=== PATIENT | female | born 1970 | race Hispanic/Latino ===

== ENCOUNTER → 2019-11-30 08:02 | Outpatient (CLI) | payer OTHER, SELFPAY ==
--- NOTE | ~2019-11-30 | US_ITS ---
US breast BI complete DATE: 11/30/2019 08:58 INDICATION: Bilateral breast masses on 11/12/2019 bilateral digital screening mammogram TECHNIQUE: Complete bilateral breast ultrasound examination COMPARISON: 11/12/2019 bilateral digital screening mammogram FINDINGS: There are numerous bilateral circumscribed sonolucent and hypoechoic lesions of variable si ze, including simple and complicated cysts and probable fibroadenomas. The largest of these on the ri ght is situated at 9:00 5 cm from the nipple, measuring up to 9 x 14 mm x 12 mm approximate dimension . The largest on the left is a simple cyst with through transmission posterior enhancement in the sub areolar area, measuring 6.4 x 12.3 x 11.5 mm. IMPRESSION: BI-RADS Category 3: Probably benign findings Recommendation: 6 month bilateral diagnostic mammogram and bilateral breast ultrasound follow-up Reviewed, dictated and finalized at [facility]. Reviewed, dictated and finalized at location A. CATCHER IMPRESSION: BI-RADS Category 3: Probably benign findings Recommendation: 6 month bilateral diagnostic mammogram and bilateral breast ult rasound follow-up
== END ==
PROVIDERS: PCP Family Medicine; Visit Provider Obstetrics & Gynecology
DX: R92.8 Other abnormal and inconclusive findings on diagnostic imaging of breast (principal)
CPT/HCPCS: 76641

== ENCOUNTER 2019-12-26 16:22 | Outpatient (RCR) | payer OTHER, SELFPAY ==
--- NOTE | 2019-12-26 17:30 | PTOPEVAL ---
Thank you for referring this patient to [facility]. Please review, sign, date and return this plan of care JACK. I agree with and certify that the following plan of care is medically necessary. Referring Physician Date Admitting Provider: Attending Provider: Shayna Domingo, Referring Provider: *PT Outpatient Evaluation Start: 12/26/19 16:30 Freq: Status: Active Protocol: Document 12/26/19 16:30 GALE (Rec: 12/26/19 17:03 GALE [id number]) Therapy Assessment Status Assessment Status Assessment Status Evaluation Evaluation Information Problem Diagnosis primary OA of bilateral knee joints Onset 11/25/19 Subjective Information Pt. reports that she developed Query Text:As Reported By Patient/ knee pain in the past. She Family reports that she does run btween 2-3 miles 3x/week. She reports that her pain is localized to the front of the knee. She reports that she does stretch occassionally. she reports that her pain does come and go. She reports she does no strength training. She states that her goal is reduce her pain. 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 Hand Dominance Right Activity of Daily Living Ability Independent Indoor/Home Mobility Independent Community Mobility Independent Stairs Ability Independent Functional Cognition (Planning, Shopping Independent , Taking Medications) Cooking Yes Cleaning Yes Laundry Yes Shopping Yes Driving Yes Pain Assessment Pain Scale Pain Scale Used Numeric (1 - 10) Self Report Pain Assessment Right Knee(s) Reported Pain Level 8 Pain Description Aching Pain Frequency Chronic,Continuous Current Pain Intensity 8 Lowest Pain Intensity 3 Greatest Pain Intensity 8 Pain Aggravating Factors Exercise/Activity Other Pain Aggravating Factors running Pain Score Pain Score 8: Self Report Lower Extremity Range of Motion General Lower Extremity Range of Motion Gross Lower Extremity Range of Motion Pt. demonstrates 0-135 degrees Comments bilateral
--- NOTE | 2019-12-30 15:34 | PCPTNOTE ---
12/30/19 Pt called and cancelled this date JF
--- NOTE | 2020-01-30 11:20 | PCPTNOTE ---
Pt. has failed to return to the clinic at this time. Refer to her last daily note on 12/26/19 for pt. discharge status. Prakash Richard, MPT
== END 2019-12-26 16:23 | disposition home or self-care (01) ==
LOC: CHSPT 16:22
PROVIDERS: Visit Provider Internal Medicine
DX: M17.0 Bilateral primary osteoarthritis of knee (principal); Q68.2 Congenital deformity of knee
CPT/HCPCS: 97014; 97110; 97161; G0283

== ENCOUNTER → 2021-12-24 14:54 | Outpatient (CLI) | payer OTHER, SELFPAY ==
--- NOTE | ~2021-12-24 | US_ITS ---
EXAMINATION: US transvaginal DATE: 12/24/2021 15:29 INDICATION: Menorrhagia Comparison:11/22/2018 TECHNIQUE: Multiple transabdominal and endovaginal sonographic images of the pelvis performed. FINDINGS: The uterus measures 7.9 x 3.6 x 4.5 cm. There is a uterine fibroid at the fundus measuring 8 mm. The endometrial complex measures 7 mm. The right ovary measures 1.7 x 1.3 x 1.8 cm and the left ovary measures 1.6 x 1 x 1.7 cm. There are small follicles in each ovary. Normal doppler signal in both ovaries. There is no free fluid in the pelvis. There are no abnormal masses seen on either side. IMPRESSION: 1. Small uterine fibroid at the fundus measuring 8 mm. Reviewed, dictated and finalized at location B. MAKER
== END ==
PROVIDERS: PCP Obstetrics & Gynecology; Visit Provider Obstetrics & Gynecology Gynecology
DX: N92.0 Excessive and frequent menstruation with regular cycle (principal); D25.9 Leiomyoma of uterus, unspecified
CPT/HCPCS: 76830

== ENCOUNTER 2022-09-22 08:31 | Day surgery (SDC) | payer OTHER, SELFPAY ==
[2022-05-20 09:54] VITALS: BMI 22.5
[2022-09-02 10:32] VITALS: BMI 22.8
[2022-09-22 09:02] VITALS: BP 118/79; PULSE 101; RESP 20; TEMP 36.8; O2SAT 100
--- NOTE | 2022-09-22 09:07 | WPDANESEPPF ---
Anes - Initial Pre Proc Eval Procedure: Operation Date: 09/22/22 09:45 Proposed Procedures p Screening Colonoscopy - Eliazar Collins MD Date/Time: 09/22/22 09:08 Surgeon: Eliazar Collins MD Pre Op Diagnosis: Neoplasm Screening Patient Data Age: 52 Gender: F Height: 1.73 m Weight: 65.6 kg Last Vital Signs Temp 36.8 C 09/22/22 09:02 Pulse 101 H 09/22/22 09:02 Resp 20 09/22/22 09:02 BP 118/79 09/22/22 09:02 Pulse Ox 100 09/22/22 09:02 O2 Del Method Room Air 09/22/22 09:02 Allergies Allergy/AdvReac Type Severity Reaction Status Date / Time No Known Allergies Allergy Verified 09/22/22 09:01 Home Medications Medication Instructions Recorded Confirmed Type evening primrose oil 500 mg capsule 500 mg PO DAILY 12/19/19 09/22/22 History folic acid 1 mg tablet 1 mg PO DAILY 12/19/19 09/22/22 History methotrexate sodium 2.5 mg tablet 2.5 mg PO WEEKLY 12/19/19 09/22/22 History progesterone micronized 200 mg 200 mg PO HS 12/19/19 09/22/22 History capsule testosterone 1.62 % (20.25 mg/1.25 1 packet transdermal DAILY 12/19/19 09/22/22 History gram) transdermal gel packet thyroid (pork) 81.25 mg tablet 81.25 mg PO DAILY 12/19/19 09/22/22 History Lactobacillus 1 cap PO DAILY 05/14/22 09/22/22 History acidophilus-Bifidobac.animalis 2.5 billion cell capsule (Daily Probiotic) cholecalciferol (vitamin D3) 125 125 mcg PO DAILY 05/14/22 09/22/22 History mcg (5,000 unit) capsule leflunomide 10 mg tablet 10 mg PO DAILY 05/14/22 09/22/22 History sulfasazine 2 tab-cap PO DAILY 05/14/22 09/22/22 History Patient hx anesthesia problems: none Family hx anesthesia problems: none Results Review: All pre-operative results and documents have been reviewed as part of the pre-operative evaluation. [facility] Past Medical History Medical History Breast cyst Connective tissue disorder Surgical History Surgical History History of myomectomy History of right knee surgery Previous section x 2 [place] teeth removed Family History Family History Sibling Family history of malignant neoplasm of breast in first degree relative Family history of thyroid disease Mother Family history of thyroid disease Family history of hypercholesterolemia Father Family history of hypercholesterolemia Carcinoma of colon Grandparent Family history of malignant neoplasm of ovary Other Family history of malignant neoplasm of breast Social History Social History Years smoked: 5 Smoking status: Former smoker Tobacco type: cigarettes Second hand tobacco smoke exposure: No Smoking end date: 11/02/96 Alcohol intake: current Drinks per week: 1 Substance use: never Substance use type: does not use Living arrangements: with family Spiritual care concerns: No Anes - Eval Final PreProcedure Day of Procedure 09/22/22 09:08 Patient weight: normal Heart: regular rate and rhythm Lungs: clear to auscultation Neurological: alert and oriented Last oral intake: >/= 8 hours ASA classification: II Emergent: no Anesthetic plan: proceed Anesthesia type and monitoring: general GIVS and standard monitoring Results Review: All pre-operative results and documents have been reviewed as part of the pre-operative evaluation. Informed Consent: The patient's anesthetic plan and its attendant risks and benefits were discussed with the patient/family/POA. Questions were solicited and answers provided to the satisfaction of the patient/family/POA.
--- NOTE | 2022-09-22 09:09 | PM.HPGS ---
History of Present Illness History of Present Illness Consent: Risks, benefits, and alternatives have been discussed and questions answered. Patient agrees to proceed with procedure. Chief complaint: Neoplasm Screening Narrative: Yolanda Noble is a 52 year old female with colon polyp 5 years ago, father also had colon cancer Review of Systems Constitutional: Constitutional: Denies headache(s) and Denies weakness Eyes: Eyes: Denies blurry vision ENT: Reports Normal hearing present, Denies headache(s) and Denies neck pain Cardiovascular: Cardiovascular: Denies chest pain and Denies dyspnea Respiratory: Respiratory: Denies dyspnea Gastrointestinal: Gastrointestinal: Reports no additional gastrointestinal complaints Genitourinary: Genitourinary: Denies dysuria Musculoskeletal: Musculoskeletal: Denies neck pain Integumentary/Breasts: Skin/Breast: Denies dry skin Neurologic: Reports Normal hearing present, Denies headache(s) and Denies weakness Psychiatric: Psychiatric: Denies anxiety Endocrine: Endocrine: Denies change in body appearance Hematologic/Lymphatic: Hematologic/Lymphatic: Denies easy bleeding Allergic/Immunologic: Allergic/Immunologic: Denies urticaria PMFSH Past Medical History Medical History (Updated 09/22/22 @ 09:09 by Eliazar Collins MD) Breast cyst Connective tissue disorder Family history of colon cancer in father Surgical History Surgical History History of myomectomy History of right knee surgery Previous section x 2 [place] teeth removed Family History Family History Sibling Family history of malignant neoplasm of breast in first degree relative Family history of thyroid disease Mother Family history of thyroid disease Family history of hypercholesterolemia Father Family history of hypercholesterolemia Carcinoma of colon Grandparent Family history of malignant neoplasm of ovary Other Family history of malignant neoplasm of breast Social History Social History Years smoked: 5 Smoking status: Former smoker Tobacco type: cigarettes Second hand tobacco smoke exposure: No Smoking end date: 11/02/96 Alcohol intake: current Drinks per week: 1 Substance use: never Substance use type: does not use Living arrangements: with family Spiritual care concerns: No Meds Home Medications and Allergies Home Medications Medication Instructions Recorded Confirmed Type evening primrose oil 500 mg capsule 500 mg PO DAILY 12/19/19 09/22/22 History folic acid 1 mg tablet 1 mg PO DAILY 12/19/19 09/22/22 History methotrexate sodium 2.5 mg tablet 2.5 mg PO WEEKLY 12/19/19 09/22/22 History progesterone micronized 200 mg 200 mg PO HS 12/19/19 09/22/22 History capsule testosterone 1.62 % (20.25 mg/1.25 1 packet transdermal DAILY 12/19/19 09/22/22 History gram) transdermal gel packet thyroid (pork) 81.25 mg tablet 81.25 mg PO DAILY 12/19/19 09/22/22 History Lactobacillus 1 cap PO DAILY 05/14/22 09/22/22 History acidophilus-Bifidobac.animalis 2.5 billion cell capsule (Daily Probiotic) cholecalciferol (vitamin D3) 125 125 mcg PO DAILY 05/14/22 09/22/22 History mcg (5,000 unit) capsule leflunomide 10 mg tablet 10 mg PO DAILY 05/14/22 09/22/22 History sulfasazine 2 tab-cap PO DAILY 05/14/22 09/22/22 History Allergies Allergy/AdvReac Type Severity Reaction Status Date / Time No Known Allergies Allergy Verified 09/22/22 09:01 Vital Signs Vital Signs - 24 hr 09/22/22 09:02 Temperature 98.3 F Pulse Rate 101 H Respiratory Rate 20 Blood Pressure 118/79 Pulse Oximetry 100 Oxygen Delivery Room Air Exam Const: General: comfortable and no acute distress HENMT: Face/Nose/Sinus: Normal nares present Eyes: General: appearance normal, both eyes a
[2022-09-22] MEDS: LACTATED RINGERS 1,000 ML 150 ML IV CONT (09:11)
[2022-09-22 09:28] VITALS: BP 104/58; PULSE 96; RESP 14; O2SAT 98
[2022-09-22 09:38] VITALS: BP 97/60; PULSE 81; RESP 13; O2SAT 100
--- NOTE | 2022-09-22 09:43 | WPDANESPN ---
Anes - Prog Note Post-Op Date/Time: 09/22/22 09:43 Cardiovascular status: normal Respiratory status: normal Airway patency: baseline Mental status: baseline Post-Op hydration status: normal Vital Signs: Last Vital Signs Temp 36.8 C 09/22/22 09:02 Pulse 96 09/22/22 09:28 Resp 14 09/22/22 09:28 BP 104/58 L 09/22/22 09:28 Pulse Ox 98 09/22/22 09:28 O2 Del Method Room Air 09/22/22 09:28 Pain Score (VAS): 0/10 I/O: Intake & Output 09/21/22 09/22/22 09/22/22 23:59 07:59 15:59 Intake Total 300 Balance 300 Patient Feedback: Patient satisfied with anesthetic care.
[2022-09-22 09:48] VITALS: BP 94/56; PULSE 73; RESP 14; O2SAT 100
== END 2022-09-22 10:30 | disposition home or self-care (01) ==
PROVIDERS: PCP Family Medicine; Visit Provider Internal Medicine Gastroenterology
PROC: 0DJD8ZZ Inspection of Lower Intestinal Tract, Via Natural or Artificial Opening Endoscopic (ICD-10-PCS; CPT 45378; principal; 2022-09-22 09:45)
DX: Z80.0 Family history of malignant neoplasm of digestive organs (principal)
CPT/HCPCS: 45378

== ENCOUNTER 2022-10-06 16:23 | Outpatient (RCR) | payer OTHER, SELFPAY ==
--- NOTE | 2022-10-06 17:17 | PTOPEVAL1 ---
Assessment and note entered by Prakash Richard Evaluation Information Assessment Status Evaluation Diagnosis bilateral shoulder pain Onset 09/24/22 Subjective Information Pt. reports that she developed shoulder pain about 2 months ago. She reports that she had a frozen shoulder, but movement restored quickly. She reports she underwent xray which did reveal arthritis. Pt. reports that she saw a PT, but was able to move her arm. She reports that pain comes and goes. She reports that nothing imparticular increases her pain. She reports that she has hx of RA and can have pain at multiple sites. She reports that her goal is to decrease her shoulder pain. Reported Pain Level Pain Score 5: Self Report Assessment PT Clinical Summary Pt. is a 52 year old female who enters the clinic with bilateral shoulder pain. She does have hx of RA, but also presents with some objective findings consistent with possible biceps tendonitis. She currently presents with slight proximal u.e. weakness and impaired postural awareness, as well as pain with palpation on this date. Continued treatment is indicated in order to improve these areas to assist with achieving the pt. goal of reduced pain with activity. Plan of Care Interventions Electrical Stimulation,Hot Pack/Cold Pack,Manual Therapy,Therapeutic Activities,Therapeutic Exercise,Self-Care/Home Management PT Services Indicated Yes Treatment Frequency and 1x/week x 4 visits Duration These treatments will address the objective and functional deficits as defined above. The patient will be advanced safely and appropriately in order for the patient to progress towards his/her prior level of function. Additional exercises will be introduced and as well as a comprehensive home exercise program upon discharge, if needed, ?to ensure carryover of functional gains achieved in the clinic. This treatment plan has been reviewed and agreement upon by the patient.
== END 2022-10-13 15:46 | disposition home or self-care (01) ==
LOC: CHSPT 16:23
PROVIDERS: Visit Provider Family Medicine
DX: M25.511 Pain in right shoulder (principal); M25.512 Pain in left shoulder
CPT/HCPCS: 97110; 97140; 97161

== ENCOUNTER 2023-04-08 11:39 | Outpatient (CLI) | payer OTHER, SELFPAY ==
--- NOTE | ~2023-04-08 | XR_ITS ---
Left foot Technique: AP and lateral weightbearing views were obtained. Clinical History: Rheumatoid arthritis Findings: No acute fracture or dislocation is seen. Osseous alignment is anatomic. Joint spaces are p reserved without erosive or degenerative change. Soft tissues are unremarkable. Impression: Unremarkable left foot radiographs. Reviewed, dictated and finalized at location . Impression: Unremarkable left foot radiographs.
--- NOTE | ~2023-04-08 | XR_ITS ---
Right foot Technique: AP and lateral standing views were obtained. Clinical History: Rheumatoid arthritis Findings: No acute fracture or dislocation is seen. Osseous alignment is anatomic. Joint spaces are p reserved without erosive or degenerative change. Soft tissues are unremarkable. Impression: Unremarkable right foot radiographs. Reviewed, dictated and finalized at location . Impression: Unremarkable right foot radiographs.
--- NOTE | ~2023-04-08 | XR_ITS ---
Bilateral Hands Technique: Bilateral PA, oblique, and lateral views, and ball-catcher's view were obtained. Clinical History: Rheumatoid arthritis Findings: No acute fracture or dislocation is seen. Osseous alignment is anatomic. Joint spaces are p reserved. Soft tissues are unremarkable. Impression: Unremarkable bilateral hand radiographs. Reviewed, dictated and finalized at location . Impression: Unremarkable bilateral hand radiographs.
== END 2023-04-08 11:40 | disposition home or self-care (01) ==
LOC: CHSIMG 11:42
PROVIDERS: PCP Family Medicine; Visit Provider Internal Medicine
DX: M06.042 Rheumatoid arthritis without rheumatoid factor, left hand (principal); M06.041 Rheumatoid arthritis without rheumatoid factor, right hand
CPT/HCPCS: 73130; 73620

== ENCOUNTER 2023-06-27 08:21 | Outpatient (CLI) | payer OTHER, SELFPAY ==
--- NOTE | ~2023-06-27 | MR_ITS ---
EXAMINATION: MR hand LT wo/w con, MR hand RT wo/w con DATE: 06/27/2023 09:58 INDICATION: Rheumatoid arthritis with bilateral hand pain TECHNIQUE: 1. Magnetic resonance imaging (MRI) of the left hand was performed without and with 15 mL Multihance intravenous contrast to include the metacarpals and digits. Sequences included axial, sagittal and co melva T1-weighted FSE and T2-weighted FS FSE, axial T1-weighted FS FSE and axial and coronal T1-weigh mayc FS FSE. 2. MRI of the right hand was performed without and with 15 mL Multihance intravenous contrast to incl ude the metacarpals and digits utilizing the same contrast bolus. Sequences included axial, sagittal and coronal T1-weighted FSE and T2-weighted FS FSE, axial T1-weighted FS FSE and axial and coronal T1 -weighted FS FSE. COMPARISON: None FINDINGS: Bone alignment is normal at the bilateral hands. No fracture or pathologic marrow replacing process. Joint spaces appear normal at the bilateral hands. There is a small enhancing erosion at the radial s billie of the head of the left third metacarpal, the radial sides of the heads of the right second-fourt h metacarpals, the volar aspect of the left capitate and the radial/volar aspect of the right lunate. There is enhancing tenosynovitis along the flexor tendons of the right second and third digits in th e left second digit. More prominent T2 hyperintense and enhancing tenosynovitis at the bilateral exte nsor carpi ulnaris tendon sheath with moderate left-sided and mild right-sided tendinopathy with long itudinal split tearing of the bilateral extensor carpi ulnaris tendons. Additional mild enhancing ten osynovitis along the bilateral extensor digitorum longus tendons. IMPRESSION: 1. There are few small enhancing erosions at the bilateral hands along with tenosynovitis along a few of the flexor and extensor tendons at the bilateral hands, both findings with consistent with an inf lammatory arthritis such as rheumatoid. 2. Moderate left-sided and mild right-sided of the extensor carpi ulnaris tendinopathy, both with raman gitudinal split tearing. Reviewed, dictated and finalized at location A. IMPRESSION: 1. There are few small enhancing erosions at the bilateral hands along with ten osynovitis along a few of the flexor and extensor tendons at the bilateral hand s, both findings with consistent with an inflammatory arthritis such as rheumat oid. 2. Moderate left-sided and mild right-sided of the extensor carpi ulnaris tendi nopathy, both with longitudinal split tearing.
== END 2023-06-27 08:22 | disposition home or self-care (01) ==
PROVIDERS: PCP Family Medicine; Visit Provider Internal Medicine
DX: M06.042 Rheumatoid arthritis without rheumatoid factor, left hand (principal); M06.041 Rheumatoid arthritis without rheumatoid factor, right hand; M77.8 Other enthesopathies, not elsewhere classified
CPT/HCPCS: 73220; A9577

== ENCOUNTER 2023-10-16 03:04 | Day surgery (SDC) | payer OTHER, SELFPAY ==
[2023-10-14 10:56] VITALS: BMI 22.8
--- NOTE | 2023-10-14 11:02 | PC.NURSE ---
Report to the Outpatient Waiting Room, entrance under the green pavilion located off [facility], at time 0600 on date 10/16/23. Planned Procedure Time: 0730. Time changes happen often and if your time is changed the preop area will call you the afternoon before. - You and your visitor will be asked to self-screen and do not enter if you have any COVID symptoms. - A mask is optional within the hospital at this time. Patients may have clear liquids (water, carbonated beverages, clear teas, apple juice) until 3 hours prior to surgery with a maximum of 20 ounces. - No food from midnight until time of surgery Take the following medications with a SIP of water the morning of surgery: THYROID DO NOT STOP ANY OF YOUR OTHER PRESCRIPTION MEDICATIONS PRIOR TO SURGERY ?EXCEPT THE FOLLOWING Medications to discontinue per physician: VITAMINS/SUPPLEMENTS Date to take last dose: NO MORE UNTIL AFTER SURGERY Please no make-up, nail latvian, hairspray, perfume, deodorant, or body powder the day of surgery. No jewelry (including any body piercings) or valuables the day of surgery, leave them at home. Please take a shower or bath the night before, or the morning of, surgery with an antibacterial soap. Wear comfortable, loose fitting clothing. - Jewelry must be removed prior to entering the operating room. Rings and piercings that are not removed may be cut off. - The hospital will not accept responsibility for valuables. - Please leave all valuables, including medications, at home the day of surgery. If you are going home after surgery, a licensed substitute bus driver must drive you home. - NO public transportation without another adult if you receive anesthesia. - We recommend that an adult stay with you for 24 hours following discharge. - We also recommend that you do not drive, make important decision, drink alcoholic beverages, or take any drugs that were not prescribed by your health care provider for at least 24 hours after your discharge time. Follow any additional instructions given to you from your surgeon. If you or anyone in your household have experienced Covid symptoms in the past week, please notify your surgeon or the nurse liaison at the phone number below for possible testing. Telephone instructions given to PT Marcelino ALVARADO and asked if any additional questions and then verbalized understanding. Patient advised to call surgeon office or pre surgery nurse liaison [phone] if any additional questions.
[2023-10-16] MEDS: ACETAMINOPHEN 500 MG TABLET 1000 MG PO (06:21)
--- NOTE | 2023-10-16 06:26 | WPDANESEPPF ---
Anes - Initial Pre Proc Eval Procedure: Operation Date: 10/16/23 07:30 Proposed Procedures p Hysteroscopy, Dilation and Curettage with Kassy Endometrial Ablation - Kiran Grewal MD Date/Time: 10/16/23 06:26 Surgeon: Kiran Grewal MD Pre Op Diagnosis: Menorrhagia Patient Data Age: 53 Gender: F Height: 1.73 m Weight: 68.05 kg Allergies Allergy/AdvReac Type Severity Reaction Status Date / Time No Known Allergies Allergy Verified 10/14/23 10:57 Home Medications Medication Instructions Recorded Confirmed Type progesterone micronized 200 mg 200 mg PO HS 12/19/19 10/14/23 History capsule testosterone 1.62 % (20.25 mg/1.25 1 packet transdermal DAILY 12/19/19 10/14/23 History gram) transdermal gel packet thyroid (pork) 81.25 mg tablet 81.25 mg PO DAILY 12/19/19 10/14/23 History Lactobacillus 1 cap PO DAILY 05/14/22 10/14/23 History acidophilus-Bifidobac.animalis 2.5 billion cell capsule (Daily Probiotic) cholecalciferol (vitamin D3) 125 125 mcg PO DAILY 05/14/22 10/14/23 History mcg (5,000 unit) capsule prasterone (dhea) 25 mg capsule 5 mg PO DAILY 05/20/23 10/14/23 History (DHEA) folic acid 1 mg tablet 1 mg PO DAILY #90 tabs 08/10/23 10/14/23 Rx methotrexate sodium 2.5 mg tablet 25 mg PO WEEKLY #40 tabs 08/10/23 10/14/23 Rx prednisone 2.5 mg tablet 2.5 mg PO DAILY #40 tabs 08/10/23 10/14/23 Rx adalimumab-adaz 40 mg/0.8 mL 40 mg (0.8 mL) subcut .every 2 08/12/23 10/14/23 Rx subcutaneous pen injector (Hyrimoz week #1.6 mL Pen) Patient hx anesthesia problems: none Family hx anesthesia problems: none Results Review: All pre-operative results and documents have been reviewed as part of the pre-operative evaluation. [facility] Past Medical History Medical History IFEOMA positive BMI 23.0-23.9, adult Breast cyst Connective tissue disorder Family history of colon cancer in father Generalized osteoarthritis of multiple sites Irregular periods Seronegative rheumatoid arthritis of both hands Undifferentiated connective tissue disease Surgical History Surgical History History of myomectomy History of right knee surgery Previous section x 2 [place] teeth removed Family History Family History Sibling Family history of malignant neoplasm of breast in first degree relative Family history of thyroid disease Breast cancer Mother Family history of thyroid disease Family history of hypercholesterolemia Father Family history of hypercholesterolemia Carcinoma of colon Grandparent Family history of malignant neoplasm of ovary Other Family history of malignant neoplasm of breast Social History Social History Years smoked: 5 Smoking status: Former smoker Tobacco type: cigarettes Second hand tobacco smoke exposure: No Smoking end date: 11/02/99 Additional smoking assessment comments: [employer]MER [employer] Alcohol intake: current Drinks per week: 1 Alcohol use details: 2/MONTH Substance use: never Substance use type: does not use Lack of Transportation: No Lack of Food: Never True Current Housing: I Have Housing Concerned About Future Housing: No Difficulty Paying Gas/Electric Bills: No Difficulty Paying for Meds: No Currently Unemployed: No Education: Decline to Answer Difficulty w/ Childcare or Family Care: No Living arrangements: with family Spiritual care concerns: No Anes - Eval Final PreProcedure Day of Procedure 10/16/23 06:26 Patient weight: normal Heart: regular rate and rhythm Lungs: clear to auscultation Airway: Mallampati scale class II Neurological: alert and oriented Last oral intake: >/= 8 hours ASA classification: II Emergent: no Anesthetic plan: proceed Anesthesia t
[2023-10-16 06:27] VITALS: BP 116/63; PULSE 78; RESP 16; TEMP 36.3; O2SAT 100
[2023-10-16] MEDS: LACTATED RINGERS 1,000 ML 30 ML IV CONT (06:38)
--- NOTE | 2023-10-16 07:12 | PM.IMHP ---
H&P: HPI History of Present Illness Date/Time: 10/16/23 07:12 Chief Complaint: History of heavy periods Narrative: She is here for endometrial ablation for history of heavy periods. She declines IUD or hormonal options. Has had benign endometrial biopsy. She has opted for endometrial ablation. [facility] Past Medical History Medical History IFEOMA positive BMI 23.0-23.9, adult Breast cyst Connective tissue disorder Family history of colon cancer in father Generalized osteoarthritis of multiple sites Irregular periods Seronegative rheumatoid arthritis of both hands Undifferentiated connective tissue disease Surgical History Surgical History History of myomectomy History of right knee surgery Previous section x 2 [place] teeth removed Family History Family History Sibling Family history of malignant neoplasm of breast in first degree relative Family history of thyroid disease Breast cancer Mother Family history of thyroid disease Family history of hypercholesterolemia Father Family history of hypercholesterolemia Carcinoma of colon Grandparent Family history of malignant neoplasm of ovary Other Family history of malignant neoplasm of breast Social History Social History Years smoked: 5 Smoking status: Former smoker Tobacco type: cigarettes Second hand tobacco smoke exposure: No Smoking end date: 11/02/99 Additional smoking assessment comments: FORMER SOCIAL SMOKER Alcohol intake: current Drinks per week: 1 Alcohol use details: 2/MONTH Substance use: never Substance use type: does not use Lack of Transportation: No Lack of Food: Never True Current Housing: I Have Housing Concerned About Future Housing: No Difficulty Paying Gas/Electric Bills: No Difficulty Paying for Meds: No Currently Unemployed: No Education: Decline to Answer Difficulty w/ Childcare or Family Care: No Living arrangements: with family Spiritual care concerns: No Meds Home Medications and Allergies Home Medications Medication Instructions Recorded Confirmed Type progesterone micronized 200 mg 200 mg PO HS 12/19/19 10/14/23 History capsule testosterone 1.62 % (20.25 mg/1.25 1 packet transdermal DAILY 12/19/19 10/14/23 History gram) transdermal gel packet thyroid (pork) 81.25 mg tablet 81.25 mg PO DAILY 12/19/19 10/14/23 History Lactobacillus 1 cap PO DAILY 05/14/22 10/14/23 History acidophilus-Bifidobac.animalis 2.5 billion cell capsule (Daily Probiotic) cholecalciferol (vitamin D3) 125 125 mcg PO DAILY 05/14/22 10/14/23 History mcg (5,000 unit) capsule prasterone (dhea) 25 mg capsule 5 mg PO DAILY 05/20/23 10/14/23 History (DHEA) folic acid 1 mg tablet 1 mg PO DAILY #90 tabs 08/10/23 10/14/23 Rx methotrexate sodium 2.5 mg tablet 25 mg PO WEEKLY #40 tabs 08/10/23 10/14/23 Rx prednisone 2.5 mg tablet 2.5 mg PO DAILY #40 tabs 08/10/23 10/14/23 Rx adalimumab-adaz 40 mg/0.8 mL 40 mg (0.8 mL) subcut .every 2 08/12/23 10/14/23 Rx subcutaneous pen injector (Nga week #1.6 mL Pen) Allergies Allergy/AdvReac Type Severity Reaction Status Date / Time No Known Allergies Allergy Verified 10/14/23 10:57 Vital Signs Vital Signs - 24 hr 10/16/23 06:27 Temperature 97.3 F L Pulse Rate 78 Respiratory Rate 16 Blood Pressure 116/63 Pulse Oximetry 100 Oxygen Delivery Room Air Assessment and Plan Assessment and plan (1) Menorrhagia: Code(s): N92.0 - Excessive and frequent menstruation with regular cycle Status: Acute Assessment and Plan: Will proceed with endometrial ablation with hysteroscopy and possible D and C and removal of lesion if present.
--- NOTE | 2023-10-16 07:15 | WPDHPUPDATE1 ---
History and Physical Update Update Date/Time: 10/16/23 07:15 History and Physical has been reviewed, including an updated exam of the patient. There are NO changes in the patient's condition. Risks, benefits, and alternatives have been discussed and questions answered. Patient agrees to proceed with procedure.
[2023-10-16] MEDS: ceFAZolin 2 GM/D5W 50 ML 2 GM/50 ML BAG IVPB (07:24)
[2023-10-16] MEDS: LIDOCAINE HCL 1% LOCAL INJ 10 ML VIAL INFILTRATE (07:37)
[2023-10-16 07:56] VITALS: BP 110/64; PULSE 75; RESP 14; O2SAT 96
--- NOTE | 2023-10-16 08:08 | W.PM.PROC2 ---
Procedure Note - Detailed Date of Procedure 10/16/23 Pre-op Diagnosis Menorrhagia Post-op Diagnosis Same Procedure Performed Endometrial ablation with hysteroscopy Surgeon Krian Grewal MD Anesthesia MAC and Local Indications Menorrhagia Findings Uterus sound to 9cm, cervical length 4.5 cm, uterine length 4.5cm, normal endometrial cavity. Description of Procedure After informed consent was obtained patient was taken to the operating room and adequate IV sedation was administered. Attention was turned to the vagina. Speculum was inserted. Single-tooth tenaculum placed on the anterior lip of the cervix. 10cc of 1% lidocaine was injected at cervicovaginal interface at 2,5,8,10 position. The uterus was sounded to 9 cm. The cervix was dilated to an 8 Kerns dilator. The cervical length was 4.5. The hysteroscope was inserted into the cavity. The findings were a normal uterine cavity. The hysteroscope was removed. The Kassy ablation instrument was inserted into the cavity. Cavity assessment was performed and confirmed intact. The ablation was enabled. After 120 seconds the Kassy stopped. The ablation instrument was removed. The hysteroscope was inserted and there was noted to be good eschar with the cavity. The hysteroscope was removed the single-tooth tenaculum was removed hemostasis was noted at the tenaculum site. Sponge count correct. The patient taken to recovery in stable condition. Estimated Blood Loss 5 Drains No Packing No Pathology None sent Complications No immediate complications Disposition Same day [facility] Billing Surgery - Charge Forward: Surgery Billing
[2023-10-16] MEDS: fentaNYL CITRATE INJ (*CRX) 100 MCG/2 ML VIAL 25 MCG IV PUSH ×2 (08:18→08:31)
[2023-10-16 08:20] VITALS: BP 105/66; PULSE 73; RESP 20
[2023-10-16 08:50] VITALS: BP 114/65; PULSE 62; RESP 20
[2023-10-16 09:20] VITALS: BP 111/62; PULSE 66; RESP 20
== END 2023-10-16 09:22 | disposition home or self-care (01) ==
PROVIDERS: PCP Family Medicine; Visit Provider Obstetrics & Gynecology
PROC: 0U5B8ZZ Destruction of Endometrium, Via Natural or Artificial Opening Endoscopic (ICD-10-PCS; CPT 58563; principal; 2023-10-16 07:30)
DX: N92.0 Excessive and frequent menstruation with regular cycle (principal); Z87.891 Personal history of nicotine dependence
CPT/HCPCS: 58563; A9270; J0690; J1100; J2250; J2405; J2704; J3010; J7120

== ENCOUNTER → 2023-12-23 07:40 | Outpatient (CLI) | payer OTHER, SELFPAY ==
--- NOTE | ~2023-12-23 | MMUS_ITS ---
EXAMINATION: MM diagnostic angela RT w casandra, US breast RT complete HISTORY: Localized swelling and breast lumps.. TECHNIQUE: Additional 3-D tomosynthesis images of the right breast were performed and synthetic 2-D i mages were generated. CAD analysis was submitted and interpreted. High resolution complete right cate st ultrasound was performed. COMPARISON: Comparison to multiple prior studies sequentially, with oldest reviewed study dated 06/2017. BREAST PARENCHYMAL COMPOSITION: Dense: The breasts are heterogeneously dense, which may obscure small masses FINDINGS: MAMMOGRAPHIC FINDINGS: There are masses in the subareolar location of the right breast. In addition, there is a mass in the upper outer quadrant of the right breast, middle third. There are no suspicious calcifications or arc hitectural distortion. ULTRASOUND: Complete US of all 4 quadrants of the right breast and retroareolar region was reviewed. There is a l arge lymph node of the right axilla measuring 3.8 cm with fatty hilum. At 1:00, 4 cm from the nipple there is an oval hypoechoic 6 mm mass, likely complicated cysts. Parallel orientation, no posterior f eatures and no internal vascularity. At 1:00, 2.5 cm from the nipple there is a cluster of microcysts measuring 7 mm. There are additional scattered cysts in the right breast. At 5:00, 2.5 cm from the n ipple there is a cluster of microcysts. At 7:00 near the areola there is an oval hypoechoic 5 mm mass with parallel orientation, smooth margins, no posterior features and no internal vascularity, likely benign. At 8:00, 5 cm from the nipple, there is a slightly lobulated hypoechoic mass measuring 8 x 5 x 7 mm with posterior acoustic enhancement and no internal vascularity. At 9:00, 6 cm from the nippl e, there is an antiparallel 6 mm mass with slightly irregular margins, posterior acoustic enhancement and marginal vascularity. At 11:00, 4 cm from the nipple there is an oval hypoechoic 5 mm mass, like ly benign. Near the nipple there is a 1.7 cm cyst corresponding to the mammographic finding. IMPRESSION: 1. Atypical appearing hypoechoic masses of the right breast at 8:00, 5 cm from the nipple measuring 8 mm and 9:00, 6 cm from the nipple. 2. Recommend attempted fine-needle aspiration of these masses to determine if they are cystic. If no fluid is obtained, recommend biopsy at that time. Recommend 6 month follow-up diagnostic mammogram an d ultrasound of the remainder of the likely benign masses identified by ultrasound. BI-RADS category 4, suspicious findings. Reviewed, dictated and finalized at location A. ER TRIMMER IMPRESSION: 1. Atypical appearing hypoechoic masses of the right breast at 8:00, 5 cm from the nipple measuring 8 mm and 9:00, 6 cm from the nipple. 2. Recommend attempted fine-needle aspiration of these masses to determine if t hey are cystic. If no fluid is obtained, recommend biopsy at that time. Recomme nd 6 month follow-up diagnostic mammogram and ultrasound of the remainder of th e likely benign masses identified by ultrasound. BI-RADS category 4, suspicious findings.
== END ==
PROVIDERS: PCP Obstetrics & Gynecology; Visit Provider Obstetrics & Gynecology
DX: N63.10 Unspecified lump in the right breast, unspecified quadrant (principal); R92.8 Other abnormal and inconclusive findings on diagnostic imaging of breast
CPT/HCPCS: 76641; 77061; 77065; G0279

== ENCOUNTER 2024-01-18 09:41 | Outpatient (CLI) | payer OTHER, SELFPAY ==
--- NOTE | ~2024-01-18 | MR_ITS ---
MR breast BI wo/w con 01/18/2024 10:57 CDT INDICATION: Right breast masses seen on prior examination. TECHNIQUE: MRI of the breasts perform using standard protocol pre-and post IV contrast with the follo wing sequences: Axial T2 STIR, axial T1, axial vibrant T1 with fat suppression precontrast and multip hasic postcontrast. COMPARISON: Comparison to multiple prior studies sequentially, with oldest reviewed study dated 11/12. FINDINGS: There are no abnormalities on the precontrast sequences. There is moderate background paren chymal enhancement. There are bilateral breast cysts. There are areas of nonmass-like enhancement in the lower outer quadrant of the right breast, 7.3 cm posterior to the nipple measuring 1.9 x 0.7 x 1. 3 cm. A secondary site of nonmasslike enhancement in the right breast located at 12:00 in the upper i nner quadrant, middle third, 8.1 cm posterior to the nipple measuring 8 mm. These do not likely corre spond to the areas of mammographic concern and may represent background enhancement. No discrete enha ncing masses are identified. No evidence of signal abnormalities in the axillary or internal mammary node distributions. LEFT BREAST: No signal abnormalities on precontrast sequences. There is marked background parenchyma l enhancement. There are bilateral breast cysts. No enhancing lesions following contrast administrati on. No areas of enhancement meeting threshold criteria on CAD analysis. No evidence of signal abno rmalities in the axillary or internal mammary node distributions.] IMPRESSION: 1: Right breast: No definite MRI correlate to mass is identified on recent ultrasound examination at 8:00, 5 cm from the nipple and 9:00, 6 cm from the nipple. Follow-up ultrasound-guided right breast biopsies recommended. BI-RADS Category 4. 2: Left breast: Negative. No evidence of malignancy. BI-RADS category 1. Recommend annual mammogr aphy follow-up. Reviewed, dictated and finalized at location A. IMPRESSION: 1: Right breast: No definite MRI correlate to mass is identified on recent ult rasound examination at 8:00, 5 cm from the nipple and 9:00, 6 cm from the nippl e. Follow-up ultrasound-guided right breast biopsies recommended. BI-RADS Categ ory 4. 2: Left breast: Negative. No evidence of malignancy. BI-RADS category 1. Re commend annual mammography follow-up.
== END 2024-01-18 09:42 | disposition home or self-care (01) ==
LOC: ANHIMG 09:41
PROVIDERS: PCP Obstetrics & Gynecology; Visit Provider Surgery
DX: N63.10 Unspecified lump in the right breast, unspecified quadrant (principal); R92.8 Other abnormal and inconclusive findings on diagnostic imaging of breast; Z80.3 Family history of malignant neoplasm of breast; Z12.31 Encounter for screening mammogram for malignant neoplasm of breast
CPT/HCPCS: 77049; A9577; C8908

== ENCOUNTER 2024-03-17 08:17 | Outpatient (CLI) | payer OTHER, SELFPAY ==
--- NOTE | ~2024-03-17 | US_ITS ---
US breast cyst asp add RT DATE: 03/17/2024 09:51 INDICATION: Atypical hypoechoic masses in right breast at 8:00 5 cm from nipple and 9:00 6 cm from ni pple reported on December 23, 2023 right breast ultrasound examination TECHNIQUE: The purpose of procedure, technique and potential complications, including bleeding, were discussed with the patient. Alternatively, the patient was informed that these were most likely cysts based upon their current appearance today (sonolucent with through transmission posterior enhancemen t) and cyst aspiration was not absolutely indicated. The patient indicated that she wanted to have th em aspirated and if necessary biopsy for her own confidence, considering her family history of breast cancer. Timeout procedure was performed. The skin was repaired with sterile Betadine solution. 1% lidocaine local anesthetic was administered to the skin at each of the 2 sites. 1% lidocaine with epinephrine was administered to the deeper subc utaneous tissues in each of the 2 sites. The 8:00 and 9:00 lesions were each successfully penetrated by 18-gauge spinal needle using ultrasound guidance and each was completely successfully aspirated, w ith no trace of the lesion afterwards. IMPRESSION: Ultrasound-guided percutaneous cyst aspirations at 8:00 and 9:00 BI-RADS category 2: Benign Reviewed, dictated and finalized at Location A. Reviewed, dictated and finalized at location B.
--- NOTE | ~2024-03-17 | US_ITS ---
US_BCARIMG_US DATE: 03/17/2024 10:01 INDICATION: Sonographic lesions in right breast at 8:00 5 cm from nipple and 9:00 6 cm from nipple id entified on 12/23/2023 right breast ultrasound examination TECHNIQUE: Please refer to 03/17/2024 cyst aspiration report. IMPRESSION: Ultrasound-guided percutaneous cyst aspirations of right breast at 8:00 5 cm from nipple and 9:00 6 cm from nipple BI-RADS Category 2: Benign Reviewed, dictated and finalized at Location A. Reviewed, dictated and finalized at location B.
== END 2024-03-17 08:18 | disposition home or self-care (01) ==
LOC: ANHIMG 08:18
PROVIDERS: PCP Obstetrics & Gynecology; Visit Provider Surgery
DX: R92.8 Other abnormal and inconclusive findings on diagnostic imaging of breast (principal); Z80.3 Family history of malignant neoplasm of breast; Z12.31 Encounter for screening mammogram for malignant neoplasm of breast
CPT/HCPCS: 19000; 19001; 76942

== ENCOUNTER 2024-04-29 08:03 | Outpatient (CLI) | payer OTHER, SELFPAY ==
--- NOTE | ~2024-04-29 | US_ITS ---
EXAMINATION: US axilla RT DATE: 04/29/2024 09:05 INDICATION: Palpable lump at the right axilla TECHNIQUE: Multiple grayscale and Doppler ultrasound images of the right axilla were obtained. COMPARISON: None FINDINGS: No pathologically enlarged lymphadenopathy or other abnormal masses or fluid collections identified a t the right axillary region of concern. IMPRESSION: 1. Normal study. No correlate for the palpable abnormality at the right axilla. Reviewed, dictated and finalized at location B.
--- NOTE | ~2024-04-29 | XR_ITS ---
EXAMINATION: XR barium swallow DATE: 04/29/2024 08:36 INDICATION: Dysphagia, unspecified. TECHNIQUE: The patient drank thick barium, gas-producing crystals, and thin barium. Fluoroscopy of th e hypopharynx and esophagus was performed. Fluoroscopy exposure time was 0.3 minutes. The total numbe r of images was 235. The dose-area product was 0.7 Gy-cm^2. COMPARISON: None. FINDINGS: There is no mass or stricture of the esophagus. Esophageal motility is normal. There is no hiatal hernia. There was no gastroesophageal reflux with provocative maneuvers. IMPRESSION: 1. Normal esophagram. Reviewed, dictated and finalized at location A. IMPRESSION: 1. Normal esophagram.
--- NOTE | ~2024-04-29 | US_ITS ---
EXAMINATION: US thyroid DATE: 04/29/2024 09:05 INDICATION: Dysphagia TECHNIQUE: Multiple ultrasound images of the thyroid were obtained. COMPARISON: None. FINDINGS: The right thyroid lobe measures 2.3 x 1.1 x 0.9 cm. The left thyroid lobe measures 2.8 x 1.1 x 0.8 c m. There is heterogeneous echogenicity with coarsened echotexture throughout the thyroid. No thyroid nodules. No pathologically enlarged lymphadenopathy identified along the bilateral jugular chains at the level of the thyroid. IMPRESSION: 1. Relatively small heterogeneous thyroid with coarsened echotexture without discrete nodules which c ould represent sequela of chronic thyroiditis. Reviewed, dictated and finalized at location B. IMPRESSION: 1. Relatively small heterogeneous thyroid with coarsened echotexture without di screte nodules which could represent sequela of chronic thyroiditis.
== END 2024-04-29 08:04 | disposition home or self-care (01) ==
PROVIDERS: PCP Nurse Practitioner Family; Visit Provider Nurse Practitioner Family
DX: R13.10 Dysphagia, unspecified (principal); E06.3 Autoimmune thyroiditis; R59.0 Localized enlarged lymph nodes
CPT/HCPCS: 74220; 76536; 76882

== ENCOUNTER 2024-07-13 13:00 | Outpatient (CLI) | payer OTHER, SELFPAY ==
--- NOTE | ~2024-07-13 | MMUS_ITS ---
EXAMINATION: MM diagnostic angela BI w casandra, US breast BI limited HISTORY: Six-month follow-up of probable benign right breast lesions TECHNIQUE: 3-D tomosynthesis images of the bilateral breasts were performed and synthetic 2-D images were generated. CAD analysis was submitted and interpreted. High resolution limited bilateral breast ultrasound was performed. COMPARISON: 12/23/2023, 04/08/2023, 09/27/2021 BREAST PARENCHYMAL COMPOSITION:Dense: The breasts are heterogeneously dense, which may obscure small masses. FINDINGS: MAMMOGRAPHIC FINDINGS: Parenchymal pattern of both breasts is unchanged. No suspicious mass lesion or distortion seen. No soni spicious microcalcification. ULTRASOUND: At the 1:00 position right breast, 2.5 cm from the nipple, there is a 6 mm hypoechoic wider than tall circumscribed mass with possible small fatty hilum, suggestive of small benign lymph node. There is a 9 mm simple cyst at the 1:00 position right breast in the periareolar region. There is an additiona l 5 mm simple cyst at the 3:00 right periareolar region. There is a 3 mm simple cyst of the right robbie ast 5:00 position, 2.5 cm from the nipple. There is benign-appearing 4 mm hypoechoic lesion at the ri ght breast 6:00 position, 4 cm from the nipple. There is an additional 3 mm benign-appearing cyst gumaro wilfredo small hypoechoic mass, wider than tall, circumscribed, at the 8:00 position right breast, 7 cm fr om the nipple. There is a minimally irregular 5 mm probable cyst at the right breast 9:00 position, 6 cm from the nipple. There is a 7 mm benign simple cyst at the right breast 11:00 position, 4 cm from the nipple. There is a 2.8 x 1.6 x 3.9 cm simple cyst at the left breast 12:00 position, 3 cm from the nipple. Se veral adjacent smaller cysts are present in the upper, outer left breast. IMPRESSION: Multiple simple cysts and additional small benign-appearing masses in the right breast, as above. Si mple left breast cyst in the upper-outer quadrant, as above. No lesions which are overtly suspicious for malignancy. BI-RADS Category 2: Benign finding(s). Reviewed, dictated and finalized at location M. IMPRESSION: Multiple simple cysts and additional small benign-appearing masses in the righ t breast, as above. Simple left breast cyst in the upper-outer quadrant, as abo ve. No lesions which are overtly suspicious for malignancy. BI-RADS Category 2: Benign finding(s).
== END 2024-07-13 13:01 | disposition home or self-care (01) ==
LOC: ANHIMG 13:02
PROVIDERS: PCP Nurse Practitioner Family; Visit Provider Surgery
DX: Z12.31 Encounter for screening mammogram for malignant neoplasm of breast (principal); R92.8 Other abnormal and inconclusive findings on diagnostic imaging of breast; N63.12 Unspecified lump in the right breast, upper inner quadrant; N63.14 Unspecified lump in the right breast, lower inner quadrant; N63.13 Unspecified lump in the right breast, lower outer quadrant; N63.11 Unspecified lump in the right breast, upper outer quadrant; N60.02 Solitary cyst of left breast; Z80.3 Family history of malignant neoplasm of breast
CPT/HCPCS: 76642; 77062; 77066; G0279

== ENCOUNTER 2025-02-13 13:50 | Outpatient (CLI) | payer OTHER, SELFPAY ==
--- NOTE | ~2025-02-13 | MR_ITS ---
MR breast BI wo/w con 02/14/2025 08:14 CDT INDICATION: Multiple masses seen on prior examination in the right breast. TECHNIQUE: MRI of the breasts perform using standard protocol pre-and post IV contrast with the follo wing sequences: Axial T2 STIR, axial T1, axial vibrant T1 with fat suppression precontrast and multip hasic postcontrast with 14 cc MultiHance intravenously. COMPARISON: Comparison to multiple prior studies sequentially, with oldest reviewed study dated 11/12. FINDINGS: Dense: The breasts are heterogeneously dense fibroglandular tissue. There are multiple bila teral breast cysts, largest in the left breast measuring 3.3 x 2 cm. Right breast: There are no abnormalities on the precontrast sequences. There is moderate background p arenchymal enhancement. There are several focal areas of nonmass-like enhancement in the right breast , largest in the upper inner quadrant at 12:00, middle third measuring 8 x 5 x 4 mm with rapid washou t enhancement. No discrete associated mass identified. There is a somewhat linear configuration of th is enhancement. No evidence of signal abnormalities in the axillary or internal mammary node distribu tions. LEFT BREAST: No signal abnormalities on precontrast sequences. There is mild background parenchymal enhancement. No enhancing lesions following contrast administration. No areas of enhancement meeti ng threshold criteria on CAD analysis. No evidence of signal abnormalities in the axillary or inter nal mammary node distributions.] IMPRESSION: 1: Right breast: Multiple areas of focal nodular nonmasslike enhancement of the right breast, larges t in the upper inner quadrant measuring 8 mm maximum dimension, likely benign background enhancement. 2: Left breast: Negative. No evidence of malignancy. Recommendation: Recommend correlation with diagnostic bilateral mammogram and ultrasound as clinicall y warranted given the prior exam mammogram was performed on 12/23/2023. BI-RADS CATEGORY 0 - INCOMPLETE STUDY, NEED ADDITIONAL IMAGING EVALUATION. Reviewed, dictated and finalized at location B. IMPRESSION: 1: Right breast: Multiple areas of focal nodular nonmasslike enhancement of th e right breast, largest in the upper inner quadrant measuring 8 mm maximum dime nsion, likely benign background enhancement. 2: Left breast: Negative. No evidence of malignancy. Recommendation: Recommend correlation with diagnostic bilateral mammogram and u ltrasound as clinically warranted given the prior exam mammogram was performed on 12/23/2023. BI-RADS CATEGORY 0 - INCOMPLETE STUDY, NEED ADDITIONAL IMAGING EVALUATION.
--- OUTSIDE RECORDS SUMMARY | 2025-02-13 15:21 | XMS_ITS | Clinical Summary ---
Author Organization [facility] [place] Address [address] [place] [address] Phone Care Team Providers Care Utilities Estimator And Drafter Name Role Phone Kisha Cleaning MD Primary Care Provider [phone] Allergies No known active allergies Medications IBUPROFEN (ADVIL ORAL)Indicatio ns:Breast lump Take by mouth. Active ergocalciferol (VITAMIN D2) 50,000 unit capsule Vitamin D2 1,250 mcg (50,000 unit) capsule Active folic acid (FOLVITE) 1 mg tablet folic acid 1 mg tablet Active methotrexate (RHEUMATREX) 2.5 mg Tablet methotrexate sodium 2.5 mg tablet Active sulfaSALAzine (AZULFIDINE EN-TAB) 500 mg Tablet, Delayed Release (E.C.) sulfasalazine 500 mg tablet,delayed release 9 Active tofacitinib (Xeljanz XR) 11 mg er tablet Xeljanz XR 11 mg tablet,extended release Active progesterone micronized (PROMETRIUM) 100 mg Capsule Take 100 mg by mouth daily. Active thyroid, pork, 130 mg tablet Take 145 mg by mouth daily. Active progesterone micronized (PROMETRIUM) 200 mg Capsule Take 300 mg by mouth daily. Active testosterone (ANDROGEL) 1 % (25 mg/2.5gram) Gel in Packet Apply 1 Packet to skin as directed daily. 22.5 ml Active Active Problems Patient Care Coordination No te Formatting of this note migh t be different from the original. Primary Care: Kisha Cleaning MD Referring Provider: Brii Kumar MD [id number] [facility] [address] [place] [address] Other: Problem Noted Date Diagnosed Date Dense breast tissue on mammogram 06/06/2020 Fibrocystic breast changes of both breasts 06/06 Mass of right breast 06/06/2020 Family history of breast cancer in sister 2019 Benign breast cyst in female 03/12/2015 Mass of left breast 08/01/2013 Family History Medical History Relation Name Comments Colon Cancer Father Breast Cancer Maternal Aunt Ovarian Cancer Maternal Grandmother Breast Cancer Sister Relation Name Status Comments Father Alive Maternal Aunt Maternal Grandmother Sister Alive Social History Tobacco Use Types Packs/Day Years Used Date Smoking Tobacco: Never Smokeless Tobacco: Never Alcohol Use Standard Drinks/Week Comments Yes 0 (1 standard drink = 0.6 oz pur e alcohol) rarely Comments No Sex and Gender Information Value Date Recorded Sex Assigned at Not on file Legal Sex Female 10:20 AM CDT Gender Identity Not on file Sexual Orientation Not on file Occupation Industry Job Start Date Job End Date Not on file Not on file Not on file Not on file Last Filed Vital Signs Vital Sign Reading Time Taken Comments Blood Pressure 108/68 06/05/2020 1:38 PM CDT Pulse 80 06/05/2020 1:38 PM CDT Temperature - - Respiratory Rate - - Oxygen Saturation - - Inhaled Oxygen Concentration - - Weight 64.4 kg (142 lb) 06/08/2020 9:00 AM CDT Height 172.7 cm (5' 8 ) 06/08/2020 9:00 AM CDT Body Mass Index 21.59 06/08/2020 9:00 AM CDT Plan of Treatment Health Maintenance Due Date Last Done Comments DTAP/TDAP/TD VACCINES (1 - Tdap) 1990 HEPATITIS B VACCINES (1 of 3 - 19+ 3-dose series) 1990 HPV/Cotest (21-29) 1992 PAP SMEAR 1992 CERVICAL CANCER SCREENING 2001 HPV/Cotest (30-65) 2001 PAP SMEAR 2001 COLORECTAL SCREENING 2016 Colorectal Cancer Screening 2016 FIT-DNA Q 3 years 2016 FIT/FOBT Q 1 year 2016 Flex Sig/CT Colonography Q 5 years 2016 ZOSTER VACCINE (1 of 2) 2021 BREAST CANCER SCREENING 04/08/2024 04/08/20 23, 09/27/2021, 06/05/2020, Additional history exists INFLUENZA VACCINE (#1) 2024 Procedures Procedure Name Priority Date/Time Associated Diagnosis Comments MAMMO 3D ULICES SCREEN BILAT W OR WO CAD Routine 04/08/2023 10:23 AM CDT Breast cancer screening by mammogram from Last 3 Months or Most Recently Relevant to Health Maintenance Results * MAMMO SCRN BILAT 3D ULICES W OR WO CAD (04/08/2023 10:23 AM CDT) Anatomical Region Laterality Modality Breast Bilateral Mammography 04/08/2023 10:2 3 AM CDT Impressions 04/08/2023 2:10 PM CDT IMPRESSION: 1. No concerning developing findings. OVERALL FINAL ASSESSMENT: BI-RADS CATEGORY 2: Benign findings RECOMMENDATIONS: 1. Recommend annual mammography. 2. The patient may also benefit from annual screening breast ultrasound in addition to mammography. Narrative 04/08/2023 2:10 PM CDT BILATERAL SCREENING DIGITAL MAMMOGRAM WITH 3D TOMOSYNTHESIS AND CAD DATE: 04/08/2023 10:23 AM DICTATION LOCATION: [facility] HISTORY: Routine yearly screening exam. TECHNIQUE: Low-dose full-field digital breast tomosynthesis examination was performed of both breasts with 2D and 3D acquisitions. CAD was utilized. COMPARISON: Studies dating back to 11/12/2019. BREAST COMPOSITION: The breasts are heterogeneously dense, which may obscure small masses. FINDINGS: No concerning dominant masses, suspicious calcifications, parenchymal asymmetries or areas of architectural distortion are identified in either breast. Bilateral partially obscured breast masses that wax and wane in size consistent with benign entities such as cysts. Procedure Note Yash Quintero MD - 04/08/2023 BILATERAL SCREENING DIGITAL MAMMOGRAM WITH 3D TOMOSYNTHESIS AND CAD DATE: 04/08/2023 10:23 AM DICTATION LOCATION: [facility] HISTORY: Routine yearly screening exam. TECHNIQUE: Low-dose full-field digital breast tomosynthesis examination was performed of both breasts with 2D and 3D acquisitions. CAD was utilized. COMPARISON: Studies dating back to 11/12/2019. BREAST COMPOSITION: The breasts are heterogeneously dense, which may obscure small masses. FINDINGS: No concerning dominant masses, suspicious calcifications, parenchymal asymmetries or areas of architectural distortion are identified in either breast. Bilateral partially obscured breast masses that wax and wane in size consistent with benign entities such as cysts. IMPRESSION: 1. No concerning developing findings. OVERALL FINAL ASSESSMENT: BI-RADS CATEGORY 2: Benign findings RECOMMENDATIONS: 1. Recommend annual mammography. 2. The patient may also benefit from annual screening breast ultrasound in addition to mammography. Kiran Grewal MD MAMMO ORDERABLES Final Result from Last 3 Months or Most Recently Relevant to Health Maintenance Insurance [employer] CHOICE POS II [place] [id number] Care Teams Utilities Estimator And Drafter Relationship Specialty Start Date End Date Kisha Cleaning MD [address] [place] [address] PCP - General Family Practice 08/01/13
--- OUTSIDE RECORDS SUMMARY | 2025-02-13 15:21 | XMS_ITS | CONTINUITY OF CARE DOCUMENT ---
Author Name zeny moura Address Unknown Organization [facility] Address [address] [place] [address] Phone [phone] Care Team Providers Care Tooth Cutter Pinion Name Role Phone Jonh JENKINS, Timo Unavailable IBETH JENKINS, RUNDA Unavailable [phone] IBETH JENKINS, RUNDA Unavailable PROBLEMS Condition Status Date Provider Notes Screening active Kenny Kyte Hx of TOBACCO ABUSE active Kenny Kyte Rheumatoid arthritis active Kenny Kyte Hypothyroidism active Kenny Kyte Sinus tachycardia active Kenny Kyte Raynaud's syndrome active Kenny Kyte ENCOUNTERS Date Type Provider Location Encounter Diag nosis - In-person encounter Office Visit Timo Borja MD [place] Office ScreeningHx of TOBACCO ABUSERheumatoid arthritisHypothyroidismSinus tachycardiaRaynaud's syndrome VITAL SIGNS Date Observation Value Provider Body Mass Index (Ratio) 22.80 kg/m2 Zelalem n Kyte blood pressure, cuff size regular Ke rri Gruenenfazalia blood pressure, diastolic 74 mm[Hg] Ke rri Gruenenfelder blood pressure, systolic 112 mm[Hg] Michelle ri Jose oxygen saturation, oximetry 98 % Deanna Jose respiratory rate E&M 16 /min Deannadestiny lazonathan pulse rate 93 /min Deanna Alfonsoluis lder weight E&M 150 [lb_av] Deanna Ewingbritneymare lder height E&M 68 [in_i] Deanna Ewingcrescencioluis lder RESULTS Date Observation Value Provider Reference Range Interpretation Location beta HCG, serum, quantitative <3 mIU/mL [employer] Normal HISTORY OF MEDICATION USE Medication Status Instructions Dates Provider Indications Com ments COLLAGEN HYDROLYSATE POWDER active 2 scoops a day Deanna Garcia VITAMIN D3 125 MCG (5000 UT) ORAL CAPSULE active ONE TAB BY MOUTH DAILY Deanna Garcia PROGESTERONE MICRONIZED CAPSULE active 300mg 1 hour before bed Deanna Garcia ARMOUR THYROID 120 MG ORAL TABLET active 1 tab daily Timo Borja MD ACIDOPHILUS PROBIOTIC CAPSULE active once a day Deanna Garcia EVENING PRIMROSE OIL 1000 MG ORAL CAPSULE active 2 a day Deanna Garcia FOLIC ACID 1 MG ORAL TABLET active once a day Deanna Garcia #90, 90 days supply, Prescribed by BLU LAGUNAS, Filled 12/06/2020 METHOTREXATE SODIUM 2.5 MG ORAL TABLET active 8 pills once a week Deanna Garcia #96, 84 days supply, Prescribed by BLU LAGUNAS, Filled 01/14/2021 LEFLUNOMIDE 10 MG ORAL TABLET active TAKE 1 TABLET BY MOUTH EVERY DAY Deanna Garcia #30, 30 days supply, Prescribed by TASIA GALEAS, Filled 01/17/2021 SULFASALAZINE 500 MG ORAL TABLET DELAYED RELEASE active take one pill twice a day Deanna Garcia #180, 90 days supply, Prescribed by BLU LAGUNAS, Filled 01/22/2021 SOCIAL HISTORY Date Observation Value Provider number of grandchildren Timo Borja MD social history E&M S moking History: Madelyn baumann is a former smoker. 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 Timo Borja MD Telehealth:On Leflun omide. Follows rheumatology. Timo Borja MD Telehealth:Has Nohemi ud's in her hands when it is cold. Timo Borja MD Telehealth:She had n ormal stress test, echo, and EKG on 02/19/2021. EF 67%. Holter monitor at that time showed minimum HR 70, avg HR 99, max HR 183. Timo Borja MD Cardiology New Patie nt:Has Raynaud's in her hands when it is cold. Advised to wear gloves. Kenny Rider Cardiology New Patient:On replac ement therapy. Kenny Rider Cardiology New Patie nt:On medications. Recently started on Leflunomide. Follows rheumatology. Kenny Rider Cardiology New Patie nt:Heart rates in the 180-190s when running. Has connective tissue disorder which is risk factor for CAD. Will arrange echo and exercise nuclear stress test. Jonny also arrange telesentry monitor. She will need a test prior to the stress test. Kenny Rider Date Name Stress Exercise Card iolite Complete Echo Monitor - Telemetry (Mobile Cardiac) HCG, TOTAL, QN HISTORY OF PROCEDURES Procedure Date Procedure Name Provider Procedure Notes S tatus Event Monitor Timo Borja MD comp leted EKG Timo Borja MD complet ed
--- OUTSIDE RECORDS SUMMARY | 2025-02-13 15:21 | XMS_ITS | Clinical Summary ---
Author Organization [facility] Address [address] [place] [address] Care Team Providers Care Investment Officer Name Role Phone Kisha Cleaning MD Primary Care Provider [phone] Allergies No known active allergies Medications tofacitinib (XELJANZ XR) 11 mg Take 1 tablet (11 mg total) by mouth daily 90 tablet 1 07/20/20 19 Active thyroid 130 mg tablet Take 145 mg by mouth daily Active progesterone (PROMETRIUM) 100 mg capsule Take 100 mg by mouth daily Active testosterone (ANDROGEL) 1 % (25 mg/2.5gram) gel in packet Place 1 packet on the skin daily Active oseltamivir (Tamiflu) 75 mg capsule daily Active methotrexate 2.5 mg tabletIndicatio ns:autoimmune disease TAKE 8 TABLETS ONCE A WEEK 96 tablet 3 10/22/20 20 Active folic acid (FOLVITE) 1 mg tablet TAKE 1 TABLET DAILY 90 tablet 3 12/06/19 21 Active sulfaSALAzine EN (AZULFIDINE EN) 500 mg EC tablet TAKE 1 TABLET TWICE A DAY 180 tablet 3 01/23/20 21 Active nancy qgxm-ihyklikx-w amolenic ac 1,000 mg capsule Take by mouth 01/31/20 21 Active cholecalciferol (VITAMIN D-3) 5,000 unit capsule cholecalciferol (vitamin D3) 125 mcg (5,000 unit) capsule Take by oral route. 01/31/20 21 Active cholecalciferol (Vitamin D3) 5,000 unit tablet Active collagen, hydrolysate, bovine, (collagen, hydr, bovine,, bulk,) 100 % powder COLLAGEN HYDROLYSATE POWDER 01/31/20 Active fluconazole (DIFLUCAN) 150 mg tablet fluconazole 150 mg tablet Active Lactobacillus acidophilus 100 mg (1 billion cell) capsule ACIDOPHILUS PROBIOTIC CAPSULE 01/31/20 Active leflunomide (ARAVA) 10 mg tablet leflunomide 10 mg tablet 01/18/20 Active Active Problems Problem Noted Date Diagnosed Date High risk medication use 10/21/2018 Assessment & Plan (10/21/2018 12:14 PM REGULATORY COMPLIANCE MANAGER): Monitoring laboratories of CBC, CMP obtained today Rheumatoid arthritis involvi ng multiple sites with positive rheumatoid factor 01/28/2018 Assessment & Plan (05/13/2019 12:31 PM CDT): 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 Given her ongoing high disease activity of inflammatory arthritis, I recommend a change in biologics and would initiate Orencia 125 mg subcu weekly. We discussed potential adverse events in the form of infections, rash or nonproductive cough. 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 She has had no objective response were subjective response to Humira. At this time I would recommend transition to an alternative biologic such as Enbrel. We will apply to her insurance company to see what is their 2nd line drug in the TNF inhibitor category. She will remain on methotrexate 20 mg plus sulfasalazine 500 mg b.i.d. Until we obtain this. Assessment & Plan (06/03/2018 2:52 PM CDT): She has documented erosive disease and has now failed optimize methotrexate plus sulfasalazine and was intolerant of hydroxychloroquine. We have discussed the risks and benefits of treatment with Humira and I would recommend initiating this at 40 mg every 2 weeks and discontinue sulfasalazine since it is adding very little to her regimen. She also feels that the Lexapro has been of little benefit but I would like for her to delay discontinue it until she has initiated the Humira. Undifferentiated connective tissue disease 06/05 Resolved Problems Problem Noted Date Diagnosed Date Resolved Date Acute sinusitis 12/23/2019 12/27/2019 Disorder of connective tissue 09/20/2019 12/27/2019 Paresthesia and pain of both upper extremities 10/21/2018 12/27/2019 Assessment & Plan (10/21/2018 12:14 PM REGULATORY COMPLIANCE MANAGER): Her symptoms have been progressive but she feels did precede use of Humira. We will schedule nerve conduction testing to see if there is evidence of a peripheral neuropathy. There is a positional component at night but the symptoms are not resolved by the upright position. I will screen B12 levels, a blood glucose. Lateral epicondylitis of right elbow 06/03/2018 12/27/2019 Assessment & Plan (06/03/2018 2:53 PM CDT): I have recommended wearing a tennis elbow strap to help with the discomfort in this region Encounter for preventive health examination 06/08/2015 12/27/2019 Surgical History Surgery Date Site/Laterality Comments KNEE ARTHROSCOPY 11/02/1997 - 11/01/1998 Right Arthroscopy knee ID DELIVERY ONLY Section - (Added by TW Conv) ID ARTHROSCOPY KNEE DIAGNOSTIC W/WO SYNOVIAL BX [id number] Right Arthroscopy Knee - (Added by TW Conv) JOINT REPLACEMENT KNEE SURGERY BREAST SURGERY Medical History Medical History Date Comments Solitary cyst of left breast Cys t of breast, left - (Added by TW Conv) Chondromalacia patellae of left knee Chondromalacia of left patella - (Added by TW Conv) Rheumatoid arthritis (HCC) Family History Medical History Relation Name Comments Cancer Father Family history of malignant neoplasm - (Added by TW Conv) Hypertension Father Ovarian cancer Maternal Grandmother Breast cancer Mother's Sister Cancer Other 1 Family history of Cancer; Other Other 2 Family history of thyroid problems; Diabetes Other 3 Family history of Diabetes mellitus; Breast cancer Sister Thyroid removal Sister Relation Name Status Comments Father Maternal Grandmother Mother's Sister Other 1 Other 2 Other 3 Sister Social History Tobacco Use Types Packs/Day Years Used Date Smoking Tobacco: Former Smokeless Tobacco: Never Alcohol Use Standard Drinks/Week Comments Yes 0 (1 standard drink = 0.6 oz pur e alcohol) Comments Unknown Sex and Gender Information Value Date Recorded Sex Assigned at Not on file Legal Sex Female 7:08 PM REGULATORY COMPLIANCE MANAGER Gender Identity Not on file Sexual Orientation Not on file Obstetrics History Last Filed Vital Signs Vital Sign Reading Time Taken Comments Blood Pressure 127/66 11/06/2021 3:09 PM REGULATORY COMPLIANCE MANAGER Pulse 88 11/06/2021 3:09 PM REGULATORY COMPLIANCE MANAGER Temperature 36.4 C (97.5 F) 12/27/2019 7:37 AM REGULATORY COMPLIANCE MANAGER Respiratory Rate - - Oxygen Saturation - - Inhaled Oxygen Concentration - - Weight 67.3 kg (148 lb 6.4 oz) 11/06/2021 3:09 P M REGULATORY COMPLIANCE MANAGER Height 172.7 cm (5' 8 ) 11/06/2021 3:09 PM REGULATORY COMPLIANCE MANAGER Body Mass Index 22.56 11/06/2021 3:09 PM REGULATORY COMPLIANCE MANAGER Plan of Treatment Not on file Insurance [facility] H[facility]/PPO Address: [address] [address] [place] [address] [facility] CHO[facility] H[facility]/PPO Address: [address] [address] [place] [address] [facility] HMO Care Teams Investment Officer Relationship Specialty Start Date End Date Kisha Cleaning MD PCP - General 01/20/14
--- OUTSIDE RECORDS SUMMARY | 2025-02-13 15:21 | XMS_ITS | Clinical Summary ---
Author Organization [facility] Address [facility] [facility] [place] [address] Care Team Providers Care Rotary Engraver Name Role Phone Unavailable Primary Care Provider Unavailabl e Source Comments [facility],non-owned Affiliates and Associated Physician Practices is amultiple site organization consisting of ambulatory clinics and hospital sitesin [place], [place], [place] and [place]. This disclosure is being madepursuant to the Care Everywhere program and may not contain all information available regarding this patient. Last updated 18.[facility] Allergies No known active allergies Medications * Be aware that medications may not be up to date on this document. Alwaysverify current medications with the patient. methotrexate 2.5 MG tablet Take 1 (one) tablet by mouth every 7 days Active etanercept (Enbrel) 50 MG/ML prefilled syringe Inject 50 (fifty) mg subcutaneously every 7 days Active folic acid (Folvite) 1 MG tablet Take 1 (one) tablet by mouth once daily Active sulfaDIAZINE 500 MG tablet Take 1 (one) tablet by mouth every 6 hours Active lactobacillus extra strength (Florajen) capsule Take 1 (one) capsule by mouth 3 times daily Active progesterone 300 mg ERT 300 mg tablet Take 1 (one) tablet by mouth once daily Active testosterone 60 MG/ML gel compound Apply to affected area once daily Active vitamin D3 (Cholecalcifer ol) 10 MCG (400 UNIT) tablet Take 1 (one) tablet by mouth once daily Active Active Problems No known active problems Encounters Date Type Department Care Team Description 12/08/2024 1:45 PM MANAGER SMALL BUSINESS Office Visit [facility] Medical [facility] [address], [address] [place] [address] Yari Love MD Family history of breast cancer (Primary Dx); Breast cancer screening, high risk patient; Axillary mass, right from Last 3 Months Family History Medical History Relation Name Comments Cancer - Colon Father Cancer - Breast Maternal Aunt Cancer - Breast Sister Relation Name Status Comments Father Alive Maternal Aunt Sister Alive Social History Tobacco Use Types Packs/Day Years Used Date Smoking Tobacco: Never Passive Smoke Exposure: Never Smokeless Tobacco: Never Tobacco Cessation:Counseling Given: No Alcohol Use Standard Drinks/Week Comments Not Currently 0 (1 standard drink = 0.6 oz pur e alcohol) Comments Unknown Sex and Gender Information Value Date Recorded Sex Assigned at Not on file Legal Sex Female 1:50 PM MANAGER SMALL BUSINESS Gender Identity Not on file Sexual Orientation Not on file Last Filed Vital Signs Vital Sign Reading Time Taken Comments Blood Pressure 128/60 12/08/2024 1:28 PM MANAGER SMALL BUSINESS Pulse 95 12/08/2024 1:28 PM MANAGER SMALL BUSINESS Temperature 37.3 C (99.1 F) 12/08/2024 1:28 PM MANAGER SMALL BUSINESS Respiratory Rate - - Oxygen Saturation - - Inhaled Oxygen Concentration - - Weight 69.3 kg (152 lb 12.8 oz) 12/08/2024 1:28 PM MANAGER SMALL BUSINESS Height 172.7 cm (5' 8 ) 12/08/2024 1:28 PM MANAGER SMALL BUSINESS Body Mass Index 23.23 12/08/2024 1:28 PM MANAGER SMALL BUSINESS Plan of Treatment Health Maintenance Due Date Last Done Comments COLOGUARD (AGES 45-75) - COLON CA SCREENING 1971 COLON MONITORING 1971 COLONOSCOPY - COLON CA SCREENING 1971 CT COLONOGRAPHY - COLON CA SCREENING 1971 Colorectal Cancer Screening 1971 FIT - COLON CA SCREENING 1971 FLEX SIG - COLON CA SCREENING 1971 LIPID TESTING 1971 PAP SMEAR 1971 HIV SCREENING 1986 HEPATITIS C SCREENING 06/21/1989 DTAP/TDAP/TD VACCINES (1 - Tdap) 1990 HEPATITIS B VACCINE (1 of 3 - 19+ 3-dose series) 1990 PNEUMOCOCCAL VACCINE 50+ (1 of 1 - PCV) 2021 ZOSTER VACCINE (1 of 2) 2021 COVID-19 VACCINE (1 - 2023-) 07/03/2024 DEPRESSION SCREENING 11/02/2024 MEDICARE AWV CALENDAR YEAR 2024 MAMMOGRAM 04/08/2025 04/08/2023, 0605/2023, 09/27/2021, Additional history exists INFLUENZA VACCINE (Season Ended) 2025 HIB VACCINE Aged Out No longer eligi ble based on patient's age to complete this topic HPV VACCINE Aged Out No longer eligi ble based on patient's age to complete this topic MENINGOCOCCAL (Group B) VACCINE SHARED DECISION-MAKING Aged Out No longer eligible based on patient's age to complete this topic MENINGOCOCCAL GROUPS A/C/Y/W VACCINE Aged Out No longer eligible based on patient's age to complete this topic Insurance [place] [address] [employer] MEDICARE ADV
--- OUTSIDE RECORDS SUMMARY | 2025-02-13 15:21 | XMS_ITS | Referral Summary ---
Author Organization [facility] Address [address] [place] [address] Care Team Providers Care Roto Mixer Operator Name Role Phone Kisha Cleaning MD Primary Care Provider [phone] Allergies No known active allergies Medications tofacitinib [...] 180 tablet 3 01/23/20 21 Active nancy klgb-bbmojexj-f amolenic ac 1,000 mg capsule Take by [...] 10/21/2018 Assessment & Plan (10/21/2018 12:14 PM GLORY HOLE TENDER): Monitoring laboratories of CBC, CMP obtained today [...] cough. Assessment & Plan (10/21/2018 12:15 PM GLORY HOLE TENDER): She has an erosive inflammatory arthritis as [...] 12/27/2019 Assessment & Plan (10/21/2018 12:14 PM GLORY HOLE TENDER): Her symptoms have been progressive but she [...] Encounter for preventive health examination 06/08/2015 12/27/2019 Social History Tobacco Use Types Packs/Day Years Used Date Smoking Tobacco: Former Smokeless Tobacco: Never Alcohol Use Standard Drinks/Week Comments Yes 0 (1 standard drink = 0.6 oz pur e alcohol) Comments Unknown Sex and Gender Information Value Date Recorded Sex Assigned at Not on file Legal Sex Female 7:08 PM GLORY HOLE TENDER Gender Identity Not on file Sexual Orientation Not on file Last Filed Vital Signs Vital Sign Reading Time Taken Comments Blood Pressure 127/66 11/06/2021 3:09 PM GLORY HOLE TENDER Pulse 88 11/06/2021 3:09 PM GLORY HOLE TENDER Temperature 36.4 C (97.5 F) 12/27/2019 7:37 AM GLORY HOLE TENDER Respiratory Rate - - Oxygen Saturation - - Inhaled Oxygen Concentration - - Weight 67.3 kg (148 lb 6.4 oz) 11/06/2021 3:09 P M GLORY HOLE TENDER Height 172.7 cm (5' 8 ) 11/06/2021 3:09 PM GLORY HOLE TENDER Body Mass Index 22.56 11/06/2021 3:09 PM GLORY HOLE TENDER Plan of Treatment Not on file Insurance [facility] Address: [address] [place] [id number] [place] [address] [facility] Address: [facility] [id number] [place] [address] [facility] H[facility]/PPO Address: [address] [place] [address] [facility] Care Teams Roto Mixer Operator Relationship Specialty Start Date End Date Kisha Cleaning MD PCP - General 01/20/14
== END 2025-02-13 13:51 | disposition home or self-care (01) ==
PROVIDERS: PCP Nurse Practitioner Family; Visit Provider Surgery
DX: R92.8 Other abnormal and inconclusive findings on diagnostic imaging of breast (principal); Z12.31 Encounter for screening mammogram for malignant neoplasm of breast; Z80.3 Family history of malignant neoplasm of breast
CPT/HCPCS: 77049; A9577; C8908

== ENCOUNTER 2025-04-12 08:17 | Outpatient (CLI) | payer OTHER, SELFPAY ==
--- NOTE | ~2025-04-12 | MMUS_ITS ---
EXAMINATION: MM diagnostic angela RT w casandra, US breast RT complete HISTORY: Follow-up nodular enhancement seen on recent MRI examination. TECHNIQUE: Additional 3-D tomosynthesis images of the right breast were performed and synthetic 2-D i mages were generated. CAD analysis was submitted and interpreted. High resolution complete right cate st ultrasound was performed. COMPARISON: Comparison to multiple prior studies sequentially, with oldest reviewed study dated 11/12. BREAST PARENCHYMAL COMPOSITION: Dense: The breasts are heterogeneously dense, which may obscure small masses FINDINGS: MAMMOGRAPHIC FINDINGS: There are no suspicious masses, calcifications or architectural distortion in the right breast to sug gest malignancy. ULTRASOUND: Complete US of all 4 quadrants of the right breast/s and retroareolar region was reviewed. There are multiple cysts of the right breast. At 3:00, 4 cm from the nipple there is an oval hypoechoic 4 mm ma ss with parallel orientation, circumscribed margins, no internal vascularity and no posterior feature s, likely benign. At 8:00, 3 cm from the nipple there is an oval hypoechoic mass measuring 5 mm with parallel orientation, no internal vascularity and no posterior features, likely benign. IMPRESSION: 1. Probable benign right breast masses by ultrasound examination at 3:00, 4 cm from the nipple an 8:0 0, 3 cm from the nipple. 2. Recommend 6 month follow-up Limited right breast ultrasound. BI-RADS category 3, probably benign findings. Reviewed, dictated and finalized at location [] IMPRESSION: 1. Probable benign right breast masses by ultrasound examination at 3:00, 4 cm from the nipple an 8:00, 3 cm from the nipple. 2. Recommend 6 month follow-up Limited right breast ultrasound. BI-RADS category 3, probably benign findings.
== END 2025-04-12 08:18 | disposition home or self-care (01) ==
LOC: MICIMG 08:18
PROVIDERS: PCP Surgery; Visit Provider Surgery
DX: R92.8 Other abnormal and inconclusive findings on diagnostic imaging of breast (principal); N63.10 Unspecified lump in the right breast, unspecified quadrant
CPT/HCPCS: 76641; 77061; 77065; G0279

== ENCOUNTER 2025-04-25 07:59 | Outpatient (RCR) | payer OTHER, SELFPAY ==
[2025-04-25 08:08] VITALS: BMI 23.1
[2025-04-25 09:55] VITALS: BMI 23.1
== END 2025-07-10 12:26 | disposition home or self-care (01) ==
LOC: ANHDMC 07:59
PROVIDERS: PCP Surgery; Visit Provider Internal Medicine Rheumatology
DX: Z71.3 Dietary counseling and surveillance (principal)
CPT/HCPCS: 97802

== ENCOUNTER 2025-04-26 14:11 | Outpatient (RCR) | payer OTHER, SELFPAY ==
--- NOTE | 2025-04-26 15:30 | OPREHPOC ---
Outpatient Therapy Plan of Care This is a Multidisciplinary Plan of Care that may contain components documented by all disciplines (PT, OT, and ST.) PT Problem 1 PT Problem #1 Knowledge Deficit PT Goal 1 Goal / Goal Update Independent and compliant with HEP. Target Visit 4 PT Problem 2 PT Problem #2 Pain PT Goal 1 Goal / Goal Update Pt to report no more than 3/10 pain at rest. Pt to be able to walk more than 1 mile without low back pain. Target Visit 10 PT Problem 3 PT Problem #3 Impaired Strength PT Goal 1 Goal / Goal Update Pt to improve cervical mm strength to 5/5 without pain. Pt to improve lower abdominal strength to 4/5. Pt to improve bilat hip strength to 5/5. Target Visit 10 PT Problem 4 PT Problem #4 Impaired Range of Motion PT Goal 1 Goal / Goal Update Pt to improve cervical extension AROM to 40 deg without pain. Pt to improve lumbar flexion AROM to ankles without pain. Target Visit 10 PT Problem 5 PT Problem #5 Impaired Functional Mobility PT Goal 1 Goal / Goal Update Pt to report 10% or less perceived disability on NDI. Pt to report 20% or less perceived disability on Oswestry. Target Visit 10
--- NOTE | 2025-04-26 15:30 | PTOPEVAL1 ---
Assessment and note entered by Nikki Hayward, PT Evaluation Information Assessment Status Evaluation ICD-10 Condition Codes (PT) Cervicalgia M54.2,Pain in low back M54.50 Subjective Information Pt reports onset of neck and pain one month ago. She denies any LIZET and reports she has rheumatoid arthritis and that it jumps around from place to place. Denies NTB down the arms or legs. She reports increased low back pain with prolonged walking and occasionally with prolonged sitting. She reports her neck pain is constant and also goes down into her shoulders. She also notes that her R shoulder is painful and limited in motion due to a potential spur. She has previously had trouble reaching laterally with the R arm and currently is unable to lie prone with her R arm above her head. Reported Pain Level Pain Score 7,6: Self Report Assessment PT Clinical Summary Mrs. Noble is a 54 yo female who presents with neck and low back pain lasting approx. one month. She demonstrates with impaired cervical, abdominal and hip strength along with pain during resisted cervical mm testing. Pt also demonstrates mm tightness of the cervical paraspinals, upper trap and levator scapulae with tenderness to palpation. She will benefit from skilled PT treatment to improve deficits and reduce pain to be able to perform daily activities with less pain. Upon examination pt also demonstrates impairments in R shoulder AROM and strength and would benefit from skilled PT treatment pending MD approval. Plan of Care Interventions Electrical Stimulation,Gait Training,Hot Pack/Cold Pack,Manual Therapy,Mechanical Traction,Neuro Re- education,Patient/Caregiver Education,Therapeutic Activities,Therapeutic Exercise,Self-Care/Home Management PT Services Indicated Yes Treatment Frequency and 2x/week for 10 visits Duration These treatments will address the objective and functional deficits as defined above. The patient will be advanced safely and appropriately in order for the patient to progress towards his/her prior level of function. Additional exercises will be introduced and as well as a comprehensive home exercise program upon discharge, if needed, ?to ensure carryover of functional gains achieved in the clinic. This treatment plan has been reviewed and agreement upon by the patient.
--- NOTE | 2025-04-26 15:57 | PTOPEVAL1 ---
Assessment and note entered by Nikki Hayward, PT Evaluation Information Assessment Status Evaluation ICD-10 Condition Codes (PT) Cervicalgia M54.2,Pain in low back M54.50 Onset 03/26/25 Subjective Information Pt reports onset of neck and pain one month ago. She denies any LIZET and reports she has rheumatoid arthritis and that it jumps around from place to place. Denies NTB down the arms or legs. She reports increased low back pain with prolonged walking and occasionally with prolonged sitting. She reports her neck pain is constant and also goes down into her shoulders. She also notes that her R shoulder is painful and limited in motion due to a potential spur. She has previously had trouble reaching laterally with the R arm and currently is unable to lie prone with her R arm above her head. Reported Pain Level Pain Score 7,6: Self Report Assessment PT Clinical Summary Mrs. Noble is a 54 yo female who presents with neck and low back pain lasting approx. one month. She demonstrates with impaired cervical, abdominal and hip strength along with pain during resisted cervical mm testing. Pt also demonstrates mm tightness of the cervical paraspinals, upper trap and levator scapulae with tenderness to palpation. She will benefit from skilled PT treatment to improve deficits and reduce pain to be able to perform daily activities with less pain. Upon examination pt also demonstrates impairments in R shoulder AROM and strength and would benefit from skilled PT treatment pending MD approval. Plan of Care Interventions Electrical Stimulation,Gait Training,Hot Pack/Cold Pack,Manual Therapy,Mechanical Traction,Neuro Re- education,Patient/Caregiver Education,Therapeutic Activities,Therapeutic Exercise,Self-Care/Home Management Other Interventions TPDN PT Services Indicated Yes Treatment Frequency and 2x/week for 10 visits Duration These treatments will address the objective and functional deficits as defined above. The patient will be advanced safely and appropriately in order for the patient to progress towards his/her prior level of function. Additional exercises will be introduced and as well as a comprehensive home exercise program upon discharge, if needed, ?to ensure carryover of functional gains achieved in the clinic. This treatment plan has been reviewed and agreement upon by the patient.
--- NOTE | 2025-05-04 10:20 | OPREHPOC ---
Outpatient Therapy Plan of Care This is a Multidisciplinary Plan of Care that may contain components documented by all disciplines (PT, OT, and ST.) PT Problem 1 PT Problem #1 Knowledge Deficit PT Goal 1 Goal / Goal Update Independent and compliant with HEP. Target Visit 4 PT Problem 2 PT Problem #2 Pain PT Goal 1 Goal / Goal Update Pt to report no more than 3/10 pain at rest. Pt to be able to walk more than 1 mile without low back pain. Target Visit 10 PT Problem 3 PT Problem #3 Impaired Strength PT Goal 1 Goal / Goal Update Pt to improve cervical mm strength to 5/5 without pain. Pt to improve lower abdominal strength to 4/5. Pt to improve bilat hip strength to 5/5. Pt to improve bilat shoulder strength to 5/5. Target Visit 10 PT Problem 4 PT Problem #4 Impaired Range of Motion PT Goal 1 Goal / Goal Update Pt to improve cervical extension AROM to 40 deg without pain. Pt to improve lumbar flexion AROM to ankles without pain. Pt to improve bilat shoulder flexion AROM to 170 deg. Pt to improve bilat shoulder abduction AROM to 140 deg. Pt to improve R shoulder active functional IR to T10. Target Visit 10 PT Problem 5 PT Problem #5 Impaired Functional Mobility PT Goal 1 Goal / Goal Update Pt to report 10% or less perceived disability on NDI. Pt to report 20% or less perceived disability on Oswestry. Target Visit 10
--- NOTE | 2025-05-04 10:20 | PTOPPROG ---
Assessment and note entered by Nikki Hayward, PT Evaluation Information Assessment Status Progress ICD-10 Condition Codes (PT) Cervicalgia M54.2,Pain in low back M54.50,Pain in right shoulder M25.511,Pain in left shoulder M25. 512 Onset 03/26/25 Subjective Information Adding dx bilateral shoulder pain today per MD order. Assessment PT Clinical Summary Mrs. Noble presents for her 4th skilled PT visit for neck and low back pain and we are also adding bilateral shoulder pain dx today. She demonstrates mild impairments in bilateral shoulder ROM, lacking full flexion and abduction AROM bilaterally and lacking functional ER/IR AROM on the R shoulder. She also demonstrates mild strength deficits in bilateral shoulders. She will benefit from skilled PT to improve these deficits in addition to improving her neck and low back pain. Plan of Care Interventions Electrical Stimulation,Gait Training,Hot Pack/Cold Pack,Manual Therapy,Mechanical Traction,Neuro Re- education,Patient/Caregiver Education,Therapeutic Activities,Therapeutic Exercise,Self-Care/Home Management Other Interventions TPDN PT Services Indicated Yes Treatment Frequency and Continue per POC Duration These treatments will address the objective and functional deficits as defined above. The patient will be advanced safely and appropriately in order for the patient to progress towards his/her prior level of function. Additional exercises will be introduced and as well as a comprehensive home exercise program upon discharge, if needed, ?to ensure carryover of functional gains achieved in the clinic. This treatment plan has been reviewed and agreement upon by the patient.
--- NOTE | 2025-06-13 17:08 | OPREHPOC ---
Outpatient Therapy Plan of Care This is a Multidisciplinary Plan of Care that may contain components documented by all disciplines (PT, OT, and ST.) PT Problem 1 PT Problem #1 Knowledge Deficit PT Goal 1 Goal / Goal Update Independent and compliant with HEP. Target Visit 4 Progress Met PT Problem 2 PT Problem #2 Pain PT Goal 1 Goal / Goal Update Pt to report no more than 3/10 pain at rest. Pt to be able to walk more than 1 mile without low back pain. Target Visit 16 Progress Not Met PT Problem 3 PT Problem #3 Impaired Strength PT Goal 1 Goal / Goal Update Pt to improve cervical mm strength to 5/5 without pain. Pt to improve lower abdominal strength to 4/5. Pt to improve bilat hip strength to 5/5. Pt to improve bilat shoulder strength to 5/5. Target Visit 16 Progress Not Met PT Problem 4 PT Problem #4 Impaired Range of Motion PT Goal 1 Goal / Goal Update Pt to improve cervical extension AROM to 40 deg without pain. met Pt to improve lumbar flexion AROM to ankles without pain. Pt to improve bilat shoulder flexion AROM to 170 deg. Pt to improve bilat shoulder abduction AROM to 140 deg. Pt to improve R shoulder active functional IR to T10. Target Visit 16 Progress Partially Met PT Problem 5 PT Problem #5 Impaired Functional Mobility PT Goal 1 Goal / Goal Update Pt to report 10% or less perceived disability on NDI. Pt to report 20% or less perceived disability on Oswestry. Target Visit 16 Progress Not Met
--- NOTE | 2025-06-13 17:08 | PTOPREEVAL ---
Assessment and note entered by JT File, PT Evaluation Information Assessment Status Re-evaluation ICD-10 Condition Codes (PT) Cervicalgia M54.2,Pain in low back M54.50,Pain in right shoulder M25.511,Pain in left shoulder M25. 512 Onset 03/26/25 Subjective Information patient reports she continues to feel tight in the lower back, neck, and shoulders. however, she reports the shoulders and neck are better more so than the lower back. she reports she has been sitting a lot more recently since being back to work. Reported Pain Level Pain Score 4,4,4: Self Report Assessment PT Clinical Summary mrs. springer presents to skilled PT with subjective reports of improvement, but still feeling tight in the back, shoulders, and neck. she presents today with continued deficits in lumbar rom, shoulder rom, weakness, and pain. continued skilled PT is indicated to achieve her objective/ functional deficits and progress towards a return to her prior level functional activity performance /quality of life. Plan of Care Interventions Electrical Stimulation,Gait Training,Hot Pack/Cold Pack,Manual Therapy,Mechanical Traction,Neuro Re- education,Patient/Caregiver Education,Therapeutic Activities,Therapeutic Exercise,Self-Care/Home Management Other Interventions TPDN PT Services Indicated Yes Treatment Frequency and continue skilled PT 2x weekly for 6 more visits Duration These treatments will address the objective and functional deficits as defined above. The patient will be advanced safely and appropriately in order for the patient to progress towards his/her prior level of function. Additional exercises will be introduced and as well as a comprehensive home exercise program upon discharge, if needed, ?to ensure carryover of functional gains achieved in the clinic. This treatment plan has been reviewed and agreement upon by the patient.
--- NOTE | 2025-06-22 15:34 | PCPTNOTE ---
Cancelled session. Reports she cannot make it today.
== END 2025-07-20 20:00 | disposition still patient (30) ==
LOC: CHSPT 14:11
PROVIDERS: Visit Provider Internal Medicine Rheumatology
DX: M54.59 Other low back pain (principal); M54.2 Cervicalgia
CPT/HCPCS: 97110; 97112; 97140; 97150; 97161

== ENCOUNTER 2025-07-17 09:48 | Outpatient (CLI) | payer OTHER, SELFPAY ==
--- NOTE | ~2025-07-17 | MMUS_ITS ---
EXAMINATION: MM diagnostic angela BI w casandra, US breast BI limited HISTORY: 6 month follow-up right breast TECHNIQUE: [Bilateral craniocaudal and mediolateral oblique projections were performed using full field digital mammography. 3-D tomosynthesis were also obtained and synthetic 2-D images were generated. CAD analysis was submitted and interpreted. High resolution bilateral breast ultrasound was performed.] ] COMPARISON: Mammograms from 04/12/2025 and 07/13/2024; breast ultrasound 04/12/2025 and 07/13/2024 BREAST PARENCHYMAL COMPOSITION: The breasts are extremely dense which lowers the sensitivity of mammography. FINDINGS: MAMMOGRAPHIC FINDINGS: Focal asymmetry in the upper-outer quadrant of the right breast, posterior depth. The finding is probably benign No suspicious calcifications or architectural distortion in either breast. ULTRASOUND: There is a 3 x 3 x 3 mm wider than tall hypoechoic cyst versus solid mass in the right breast at the 3:00 position 4 cm from the nipple. Margins are primarily well-circumscribed. No internal color Doppler flow. No posterior acoustic shadowing. The finding is grossly stable. The findings probably benign. There is a 4 x 6 x 4 mm hypoechoic cyst versus solid mass in the right breast at 8:00 position 3 cm from nipple middle depth. The finding is wider than tall. Margins are partially circumscribed. No Doppler flow. No posterior acoustic shadowing. The finding is similar to the prior study. The findings probably benign. There is a 3.7 x 2.6 x 1.3 cm benign cyst in the left breast at the 11:00 position 2 cm an appointment area of palpable concern. IMPRESSION/RECOMMENDATION: 1. Probably benign findings in the right breast. A diagnostic right breast mammogram and a diagnostic right breast ultrasound in 6 months is recommended. 2. Benign findings in the left breast. Annual screening mammogram is recommended. BI-RADS 3-Probably benign-Short interval follow-up suggested. Reviewed, dictated and finalized at location Q. IMPRESSION/RECOMMENDATION: 1. Probably benign findings in the right breast. A diagnostic right breast mamm ogram and a diagnostic right breast ultrasound in 6 months is recommended. 2. Benign findings in the left breast. Annual screening mammogram is recommende d. BI-RADS 3-Probably benign-Short interval follow-up suggested. IMPRESSION/RECOMMENDATION: 1. Probably benign findings in the right breast. A diagnostic right breast mamm ogram and a diagnostic right breast ultrasound in 6 months is recommended. 2. Benign findings in the left breast. Annual screening mammogram is recommende d. BI-RADS 3-Probably benign-Short interval follow-up suggested.
--- OUTSIDE RECORDS SUMMARY | 2025-07-17 10:52 | XMS_ITS | Clinical Summary ---
Author Organization [facility] [employer] Address [address] [place] [address] [place] [address] Care Team Providers Care Roof Designer Name Role Phone Unavailable Primary Care Provider Unavailabl e Source Comments [facility],non-owned Affiliates and Associated Physician Practices is amultiple site organization consisting of ambulatory clinics and hospital sitesin [place], [place], [place] and [place]. This disclosure is being madepursuant to the Care Everywhere program and may not contain all information available regarding this patient. Last updated 18.[facility] [employer] Allergies No known active allergies Medications * [...] Active Active Problems No known active problems Family History Medical History Relation Name Comments [...] on file Legal Sex Female 1:50 PM LOOM FIXER APPRENTICE Gender Identity Not on file Sexual Orientation Not on file Last Filed Vital Signs Vital Sign Reading Time Taken Comments Blood Pressure 128/60 12/08/2024 1:28 PM LOOM FIXER APPRENTICE Pulse 95 12/08/2024 1:28 PM LOOM FIXER APPRENTICE Temperature 37.3 C (99.1 F) 12/08/2024 1:28 PM LOOM FIXER APPRENTICE Respiratory Rate - - Oxygen Saturation - - Inhaled Oxygen Concentration - - Weight 69.3 kg (152 lb 12.8 oz) 12/08/2024 1:28 PM LOOM FIXER APPRENTICE Height 172.7 cm (5' 8) 12/08/2024 1:28 PM LOOM FIXER APPRENTICE Body Mass Index 23.23 12/08/2024 1:28 PM LOOM FIXER APPRENTICE Plan of Treatment Health Maintenance Due Date Last Done Comments COLOGUARD (AGES 45-75) - COLON CA SCREENING 1971 COLON MONITORING 1971 COLONOSCOPY - COLON CA SCREENING 1971 CT COLONOGRAPHY - COLON CA SCREENING 1971 Colorectal Cancer Screening 1971 FIT - COLON CA SCREENING 1971 FLEX SIG - COLON CA SCREENING 1971 LIPID TESTING 1971 HIV SCREENING 1986 HEPATITIS C SCREENING 06/21/1989 DTAP/TDAP/TD VACCINES (1 - Tdap) 1990 HEPATITIS B VACCINE (1 of 3 - 19+ 3-dose series) 1990 PAP SMEAR 1992 PNEUMOCOCCAL VACCINE 50+ (1 of 1 - PCV) 2021 ZOSTER VACCINE (1 of 2) 2021 DEPRESSION SCREENING 11/02/2024 MEDICARE AWV CALENDAR YEAR 2024 MAMMOGRAM 04/08/2025 04/08/2023, 05/2023, 09/27/2021, Additional history exists COVID-19 VACCINE ( - season) 2025 INFLUENZA VACCINE (#1) 2025 HIB VACCINE Aged Out No longer [...] patient's age to complete this topic Insurance AETNA MEDICARE [facility] Address: [address] [address] [place] [address]
--- OUTSIDE RECORDS SUMMARY | 2025-07-17 10:52 | XMS_ITS | Clinical Summary ---
Author Organization [facility] Address [address] [place] [address] Phone Care Team Providers Care Grinder Operator Name Role Phone Kisha Cleaning MD Primary Care Provider [phone] Allergies No known active allergies Medications IBUPROFEN [...] Care: Kisha Cleaning MD Referring Provider: Brii Kumra MD [address] [facility] [address] [place] [address] Other: Problem Noted Date Diagnosed Date Dense [...] 9:00 AM CDT Height 172.7 cm (5' 8) 06/08/2020 9:00 AM CDT Body Mass Index 21.59 06/08/2020 9:00 AM CDT Plan of Treatment Health Maintenance Due Date Last Done Comments DTAP/TDAP/TD VACCINES (1 - Tdap) 1990 HEPATITIS B VACCINES (1 of 3 - 19+ 3-dose series) 1990 HPV/Cotest (21-29) 1992 CERVICAL CANCER SCREENING 2001 HPV/Cotest (30-65) 2001 PAP SMEAR 2001 COLORECTAL SCREENING 2016 Colorectal Cancer Screening 2016 FIT-DNA Q 3 years 2016 FIT/FOBT Q 1 year 2016 Flex Sig/CT Colonography Q 5 years 2016 ZOSTER VACCINE (1 of 2) 2021 BREAST CANCER SCREENING 04/08/2024 04/08/20, 09/27/2021, 06/05/2020, Additional history exists INFLUENZA VACCINE (#1) 2025 Procedures Procedure Name Priority Date/Time Associated Diagnosis [...] CAD DATE: 04/08/2023 10:23 AM DICTATION LOCATION: [facility] HISTORY: Routine yearly screening exam. TECHNIQUE: Low-dose [...] CAD DATE: 04/08/2023 10:23 AM DICTATION LOCATION: [facility] HISTORY: Routine yearly screening exam. TECHNIQUE: Low-dose [...] screening breast ultrasound in addition to mammography. us Kiran Grewal MD MAMMO ORDERABLES Final Result from Last 3 Months or Most Recently Relevant to Health Maintenance Insurance AETNA CHOICE POS II [facility] OPTIONS PPO [id number] Care Teams Grinder Operator Relationship Specialty Start Date End Date Kisha Cleaning MD [address] [place] [address] PCP - General Family Practice 9/30/13
--- OUTSIDE RECORDS SUMMARY | 2025-07-17 10:52 | XMS_ITS | Clinical Summary ---
Author Organization [facility] Address [address] [place] [address] Care Team Providers Care Automotive Tire Technician Name Role Phone Kisha Cleaning MD Primary Care Provider [phone] Allergies No known active allergies Medications tofacitinib [...] 180 tablet 3 01/23/20 21 Active nancy ebqu-uymwbzix-e amolenic ac 1,000 mg capsule Take by [...] 10/21/2018 Assessment & Plan (10/21/2018 12:14 PM CRYSTAL LAPPER): Monitoring laboratories of CBC, CMP obtained today [...] cough. Assessment & Plan (10/21/2018 12:15 PM CRYSTAL LAPPER): She has an erosive inflammatory arthritis as [...] 12/27/2019 Assessment & Plan (10/21/2018 12:14 PM CRYSTAL LAPPER): Her symptoms have been progressive but she [...] ARTHROSCOPY 11/02/1997 - 11/01/1998 Right Arthroscopy knee HI DELIVERY ONLY Section - (Added by TW Conv) HI ARTHROSCOPY KNEE DIAGNOSTIC W/WO SYNOVIAL BX SPX [...] on file Legal Sex Female 7:08 PM CRYSTAL LAPPER Gender Identity Not on file Sexual Orientation Not on file Obstetrics History Last Filed Vital Signs Vital Sign Reading Time Taken Comments Blood Pressure 127/66 11/06/2021 3:09 PM CRYSTAL LAPPER Pulse 88 11/06/2021 3:09 PM CRYSTAL LAPPER Temperature 36.4 C (97.5 F) 12/27/2019 7:37 AM CRYSTAL LAPPER Respiratory Rate - - Oxygen Saturation - - Inhaled Oxygen Concentration - - Weight 67.3 kg (148 lb 6.4 oz) 11/06/2021 3:09 P M CRYSTAL LAPPER Height 172.7 cm (5' 8) 11/06/2021 3:09 PM CRYSTAL LAPPER Body Mass Index 22.56 11/06/2021 3:09 PM CRYSTAL LAPPER Plan of Treatment Not on file Insurance [facility] CHOICE PLUS [facility] HMO/PPO Address: [address] [place] [address] [facility] CHOICE PLUS [facility] HMO Care Teams Automotive Tire Technician Relationship Specialty Start Date End Date Kisha Cleaning MD PCP - General 01/20/14
== END 2025-07-17 09:49 | disposition home or self-care (01) ==
LOC: CHSIMG 09:50
PROVIDERS: PCP Nurse Practitioner Family; Visit Provider Surgery
DX: R92.8 Other abnormal and inconclusive findings on diagnostic imaging of breast (principal); N63.10 Unspecified lump in the right breast, unspecified quadrant
CPT/HCPCS: 76642; 77062; 77066; G0279

== ENCOUNTER 2025-07-27 16:14 | Outpatient (RCR) | payer OTHER, SELFPAY | END 2025-10-25 23:59 | disposition home or self-care (01) | LOC: CHSPT 16:14 | PROVIDERS: Visit Provider Internal Medicine Rheumatology | DX: M54.59 Other low back pain (principal); M54.2 Cervicalgia; M25.511 Pain in right shoulder; M25.512 Pain in left shoulder | CPT/HCPCS: 97110; 97140 ==

== ENCOUNTER 2025-08-14 08:15 | Outpatient (CLI) | payer OTHER, SELFPAY ==
--- NOTE | ~2025-08-14 | DEXA_ITS ---
Bone Density Report Name: IFEOMA ALVRAADO Age: 55 Sex: Female Ethnicity: White Date of : 1970 Indication: screening for osteoporosis; rheumatoid arthritis; Referring Provider: RANJITH FITZPATRICK Study: Bone densitometry was performed. Exam Date: August 14, 2025 Accession number: [id number] Bone Density: Region BMD T-score Z-score Classification AP Spine(L1-L4) 1.200 1.4 2.4 Normal Femoral Neck (Left) 0.769 -0.7 0.3 Normal Total Hip (Left) 0.943 0.0 0.6 Normal Femoral Neck (Right) 0.744 -0.9 0.1 Normal Total Hip (Right) 0.960 0.1 0.8 Normal Total Hip Mean 0.952 0.1 0.7 Normal World Health Organization criteria for BMD impression classify patients as: Normal (T-score at or above -1.0), Osteopenia (T-score between -1.0 and -2.5), or Osteoporosis (T-score at or below -2.5). 10-year Fracture Risk: FRAX not reported because: Premenopausal woman All T-scores for Spine Total, Hip Total, Femoral Neck at or above -1.0 Clinical Information Provided by Patient: Has rheumatoid arthritis Has used the following medications: Vitamin D Patient maximum height was 68.0 Menopause Age: 55 Drinks caffeinated beverages Onset of menses at age 17 Premenopausal Number of children 2 Impression: The patient's bone mass is within expected range for age, gender and ethnicity. Discussion: BONE DENSITY IS WITHIN EXPECTED LIMITS FOR AGE, SEX AND RACE. Bone density is within expected limits for age, sex and race at all sites measured. The patient should follow a healthful lifestyle (good nutrition with adequate calcium and vitamin D, and appropriate weight-bearing exercise). Follow-Up: Consider repeating this study in 5 years or sooner if there is some new clinical indication. Reported by: YENI on 08/14/2025 8:56:00 AM. Reviewed, dictated and finalized at location A.
--- OUTSIDE RECORDS SUMMARY | 2025-08-14 08:22 | XMS_ITS | Clinical Summary ---
Author Organization [facility] Address [address] [place] [address] Phone Care Team Providers Care Therapeutic Specialist Name Role Phone Kisha Cleaning MD Primary Care Provider Allergies No known active allergies Medications IBUPROFEN [...] MD Referring Provider: Brii Kumar MD [address] [facility] [address] [place] [address] Other: Problem Noted Date Diagnosed Date Dense [...] CAD DATE: 04/08/2023 10:23 AM DICTATION LOCATION: [facility] HISTORY: Routine yearly screening exam. TECHNIQUE: [...] CAD DATE: 04/08/2023 10:23 AM DICTATION LOCATION: [facility] HISTORY: Routine yearly screening exam. TECHNIQUE: [...] Health Maintenance Insurance [employer]ET[employer] CHOICE POS II [facility] OPTIONS PPO [id number] Care Teams Therapeutic Specialist Relationship Specialty Start Date End Date Kisha Cleaning MD [address] [place] [address] PCP - General Family Practice 9/30/13
--- OUTSIDE RECORDS SUMMARY | 2025-08-14 08:22 | XMS_ITS | Clinical Summary ---
Author Organization [facility] Address [address] [place] [address] Care Team Providers Care Phytopathologist Name Role Phone Kisha Cleaning MD Primary Care Provider [phone] Allergies No known active allergies Medications tofacitinib [...] 180 tablet 3 01/23/20 21 Active nancy znkg-irftblpr-w amolenic ac 1,000 mg capsule Take by [...] 10/21/2018 Assessment & Plan (10/21/2018 12:14 PM TOOL DESIGN DRAFTSPERSON): Monitoring laboratories of CBC, CMP obtained today [...] cough. Assessment & Plan (10/21/2018 12:15 PM TOOL DESIGN DRAFTSPERSON): She has an erosive inflammatory arthritis as [...] 12/27/2019 Assessment & Plan (10/21/2018 12:14 PM TOOL DESIGN DRAFTSPERSON): Her symptoms have been progressive but she [...] ARTHROSCOPY 11/02/1997 - 11/01/1998 Right Arthroscopy knee [place] DELIVERY ONLY Section - (Added by TW Conv) [place] ARTHROSCOPY KNEE DIAGNOSTIC W/WO SYNOVIAL BX SPX [...] on file Legal Sex Female 7:08 PM TOOL DESIGN DRAFTSPERSON Gender Identity Not on file Sexual Orientation Not on file Obstetrics History Last Filed Vital Signs Vital Sign Reading Time Taken Comments Blood Pressure 127/66 11/06/2021 3:09 PM TOOL DESIGN DRAFTSPERSON Pulse 88 11/06/2021 3:09 PM TOOL DESIGN DRAFTSPERSON Temperature 36.4 C (97.5 F) 12/27/2019 7:37 AM TOOL DESIGN DRAFTSPERSON Respiratory Rate - - Oxygen Saturation - - Inhaled Oxygen Concentration - - Weight 67.3 kg (148 lb 6.4 oz) 11/06/2021 3:09 P M TOOL DESIGN DRAFTSPERSON Height 172.7 cm (5' 8) 11/06/2021 3:09 PM TOOL DESIGN DRAFTSPERSON Body Mass Index 22.56 11/06/2021 3:09 PM TOOL DESIGN DRAFTSPERSON Plan of Treatment Not on file Insurance [facility]/PPO Address: [address] [address] [place] [address] [facility] Address: [id number] [place] [address] [facility] H[facility]/PPO Address: [address] [address] [place] [address] [facility] HMO Care Teams Phytopathologist Relationship Specialty Start Date End Date Kisha Cleaning MD PCP - General 01/20/14
--- OUTSIDE RECORDS SUMMARY | 2025-08-14 08:22 | XMS_ITS | Clinical Summary ---
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 This disclosure is being madepursuant to the Care Everywhere program and may not contain all information available regarding this patient. 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
== END 2025-08-14 08:16 | disposition home or self-care (01) ==
LOC: ANHFOHIMG 08:16
PROVIDERS: PCP Nurse Practitioner Family; Visit Provider Obstetrics & Gynecology
DX: Z78.0 Asymptomatic menopausal state (principal); Z91.89 Other specified personal risk factors, not elsewhere classified
CPT/HCPCS: 77080